=== PATIENT | female | born 1935 | race Two or more races ===

== ENCOUNTER → 2017-07-15 | Outpatient (CLI) | payer OTHER ==
[~2017-07-15] MED LIST: AMLODIPINE BESY10 M1 PO; ATENOLOL25 MG PO; COZAAR100 MG PO; HYDROCHLOROTH12.5 M2 PO; KLOR-CON M1010 MEQ PO; METFORMIN ER500 M1 PO; TRAVATAN Z5 ML OU
== END | disposition home or self-care (01) ==
LOC: RD 11:21
DX: R22.9 Localized swelling, mass and lump, unspecified (principal)

== ENCOUNTER 2018-03-23 14:23 | Emergency (ER) | payer OTHER ==
[~2018-03-23] VITALS: Ht 157.5 cm; Wt 55.8 kg
[2018-03-23 14:41] VITALS: Ht 157.5 cm; Wt 55.8 kg
[2018-03-23 19:35] VITALS: BP 192/73
== END 2018-03-23 19:35 | disposition home or self-care (01) ==
LOC: ED 14:23
DX: S39.012A Strain of muscle, fascia and tendon of lower back, initial encounter (principal); S29.012A Strain of muscle and tendon of back wall of thorax, initial encounter; S30.0XXA Contusion of lower back and pelvis, initial encounter; I10 Essential (primary) hypertension; E11.9 Type 2 diabetes mellitus without complications; Z90.710 Acquired absence of both cervix and uterus; Z98.890 Other specified postprocedural states; Z85.068 Personal history of other malignant neoplasm of small intestine; W01.0XXA Fall on same level from slipping, tripping and stumbling without subsequent striking against object, initial encounter; Y93.89 Activity, other specified; Y92.89 Other specified places as the place of occurrence of the external cause; Y99.8 Other external cause status
CPT/HCPCS: J3010; Q0162

== ENCOUNTER 2018-09-25 11:52 | Inpatient (IN) | payer OTHER ==
[~2018-09-25] VITALS: Ht 157.5 cm; Wt 60.5 kg
[2018-09-25 11:58] VITALS: Ht 157.5 cm; Wt 60.5 kg
[2018-09-25 12:48] LABS: ALKALINE PHOSPHATASE 47 U/L (46-116); ALT/SGPT 21 U/L (14-59); AST/SGOT 13 U/L (15-37); BILIRUBIN TOTAL 0.34 mg/dL (0.20-1.00); CALCIUM 9.7 mg/dL (8.5-10.1); CARBON DIOXIDE 24.2 mmol/L (21-32); CHLORIDE SERUM 101 mmol/L (98-107); CREATININE SERUM 1.8 mg/dL (0.6-1.0); GLUCOSE SERUM 211 mg/dL (74-106); LIPASE 347 IU/L (73-393); SODIUM SERUM 139 mmol/L (136-145); TOTAL PROTEIN, SERUM 7.3 g/dL (6.4-8.2)
[2018-09-25 12:50] LABS: BASOPHIL % 0.4 % (0-2); PLATELET COUNT 310 x10^3mcL (130-400); RED CELL DISTRIBUTION WIDTH 13.9 % (11.5-14.5)
[2018-09-25 12:54] LABS: ALBUMIN 3.2 g/dL (3.4-5.0); POTASSIUM SERUM 2.7 mmol/L (3.5-5.1)
[2018-09-25 13:28] LABS: microscopic required? YES
[2018-09-25 13:29] LABS: urine erythrocyte NEGATIVE (NEGATIVE)
[2018-09-25] MEDS ORDERED: NIFEDIPINE ER60 M1 PO (15:02)
[2018-09-25] MEDS ORDERED: POTASSIUM CHLO10 MEQ PO (15:02)
[2018-09-25] MEDS ORDERED: NOR10 PO (15:02)
[2018-09-25] MEDS ORDERED: HYDROCHLOROTHIA25 MG PO (15:05)
[2018-09-25] MEDS ORDERED: TYLENOL ARTHRI650 MG PO (15:07)
[2018-09-25 15:41] LABS: MAGNESIUM 1.9 mg/dL (1.8-2.4); PHOSPHOROUS 4.1 mg/dL (2.5-4.9)
[2018-09-25 15:48] LABS: CHOLESTEROL/HDL RATIO 6.5
[2018-09-25 15:50] LABS: FREE T4 0.88 ng/dL (0.76-1.46); FREE THYROXINE INDEX 2.4 ug/dL (1.4-4.5); T3 TOTAL 1.24 ng/mL; T4(THYROXINE) 7.2 ug/dL (4.7-13.3)
[2018-09-25 17:30] VITALS: BP 157/66
[2018-09-25 17:47] VITALS: BP 157/66
[2018-09-25 21:04] VITALS: BP 122/74
[2018-09-26 05:28] VITALS: BP 172/69
[2018-09-26 06:14] LABS: BASOPHIL % 0.2 % (0-2); PLATELET COUNT 272 x10^3mcL (130-400); RED CELL DISTRIBUTION WIDTH 14.4 % (11.5-14.5)
[2018-09-26 06:43] LABS: CALCIUM 8.7 mg/dL (8.5-10.1); CARBON DIOXIDE 24.5 mmol/L (21-32); CHLORIDE SERUM 111 mmol/L (98-107); CREATININE SERUM 1.3 mg/dL (0.6-1.0); GLUCOSE SERUM 94 mg/dL (74-106); MAGNESIUM 2.1 mg/dL (1.8-2.4); PHOSPHOROUS 3.2 mg/dL (2.5-4.9); POTASSIUM SERUM 3.7 mmol/L (3.5-5.1); SODIUM SERUM 146 mmol/L (136-145)
[2018-09-26 07:58] VITALS: BP 180/72
[2018-09-26 16:36] VITALS: BP 186/69
[2018-09-26 20:36] VITALS: BP 165/72
[2018-09-27 06:00] VITALS: BP 141/72; BP 193/73
[2018-09-27 10:00] VITALS: BP 215/74
[2018-09-27 17:20] VITALS: BP 193/76
[2018-09-27 21:59] VITALS: BP 128/74
[2018-09-28 05:16] VITALS: BP 127/76
[2018-09-28 06:14] LABS: CALCIUM 8.4 mg/dL (8.5-10.1); CARBON DIOXIDE 25.1 mmol/L (21-32); CHLORIDE SERUM 109 mmol/L (98-107); CREATININE SERUM 1.3 mg/dL (0.6-1.0); GLUCOSE SERUM 91 mg/dL (74-106); POTASSIUM SERUM 3.5 mmol/L (3.5-5.1); SODIUM SERUM 142 mmol/L (136-145)
[2018-09-28 08:08] LABS: PLATELET COUNT 245 x10^3mcL (130-400); RED CELL DISTRIBUTION WIDTH 14.2 % (11.5-14.5)
[2018-09-28 10:04] VITALS: BP 116/71
[2018-09-28 13:05] LABS: ATYPICAL LYMPH 0 %; BAND NEUTROPHIL 0 % (0-10); BASOPHIL 2 % (0-2); MONOCYTE 12 % (0-7); SEGMENTED NEUTROPHILS 58 % (37-75)
[2018-09-28 13:06] LABS: PLATELET MORPHOLOGY PLATELETS DECREASED; rbc morphology (normal/abnorm) NORMAL (NORMAL)
[2018-09-28] MEDS ORDERED: NOR10 PO (14:48)
[2018-09-28] MEDS ORDERED: NIFEDIPINE60 MG PO (14:48)
[2018-09-28] MEDS ORDERED: DIOVAN320 MG PO (14:50)
[2018-09-28] MEDS ORDERED: HYDROCHLOROTHIA25 MG PO (14:53)
== END 2018-09-28 14:57 | disposition home health service (06) | DRG 640 ==
LOC: ED 11:52 → MU 14:30
PROVIDERS: Emergency Medicine; ADMIT Family Medicine
DX: E87.6 Hypokalemia (principal); N17.0 Acute kidney failure with tubular necrosis; N39.0 Urinary tract infection, site not specified; G90.8 Other disorders of autonomic nervous system; E86.0 Dehydration; E04.1 Nontoxic single thyroid nodule; I10 Essential (primary) hypertension; E11.9 Type 2 diabetes mellitus without complications; H54.61 Unqualified visual loss, right eye, normal vision left eye; Z68.21 Body mass index [BMI] 21.0-21.9, adult; Z79.84 Long term (current) use of oral hypoglycemic drugs; Z85.060 Personal history of malignant carcinoid tumor of small intestine
CPT/HCPCS: 83880; 84439; 97110-GP; 97116-GP; 97530-GP; J0696; J3480; J7030; Q0092

== ENCOUNTER → 2018-10-01 | Outpatient (CLI) | payer OTHER ==
[~2018-10-01] MED LIST changes: +DIOVAN320 MG PO; +HYDROCHLOROTHIA25 MG PO; +NIFEDIPINE ER60 M1 PO; +NIFEDIPINE60 MG PO; +NOR10 PO; +POTASSIUM CHLO10 MEQ PO; +TYLENOL ARTHRI650 MG PO
== END | disposition home or self-care (01) ==
LOC: NM 08:02
DX: I25.10 Atherosclerotic heart disease of native coronary artery without angina pectoris (principal)
CPT/HCPCS: A9500; J2785

== ENCOUNTER 2019-03-29 12:19 | Inpatient (IN) | payer OTHER ==
[~2019-03-29] VITALS: Ht 157.5 cm; Wt 59.4 kg
[2019-03-29 14:22] LABS: BASOPHIL % 0.2 % (0-2); PLATELET COUNT 279 x10^3mcL (130-400); RED CELL DISTRIBUTION WIDTH 13.4 % (11.5-14.5)
[2019-03-29 14:25] LABS: UA SPECIFIC GRAVITY 1.015 (1.005-1.035); microscopic required? YES; urine erythrocyte NEGATIVE (NEGATIVE)
[2019-03-29 14:44] LABS: CALCIUM 8.5 mg/dL (8.5-10.1); CARBON DIOXIDE 23.4 mmol/L (21-32); CHLORIDE SERUM 104 mmol/L (98-107); CREATININE SERUM 2.3 mg/dL (0.6-1.0); GLUCOSE SERUM 124 mg/dL (74-106); POTASSIUM SERUM 3.4 mmol/L (3.5-5.1); SODIUM SERUM 139 mmol/L (136-145)
[2019-03-29 14:57] LABS: ALKALINE PHOSPHATASE 54 U/L (46-116); ALT/SGPT 12 U/L (14-59); AST/SGOT 10 U/L (15-37); BILIRUBIN TOTAL 0.3 mg/dL (0.20-1.00); FREE T4 0.86 ng/dL (0.76-1.46); TOTAL PROTEIN, SERUM 6.8 g/dL (6.4-8.2)
[2019-03-29 14:58] LABS: ALBUMIN 2.7 g/dL (3.4-5.0)
[2019-03-29] MEDS ORDERED: HYDRALAZINE HCL25 MG PO ×2 (16:44→21:47)
[2019-03-29] MEDS ORDERED: CATAPRES0.1 MG PO (16:46)
[2019-03-29] MEDS ORDERED: LATANOPROST2.5 ML (16:48)
[2019-03-29] MEDS ORDERED: ALPHAGAN P5 M1 (16:49)
[2019-03-29 17:16] VITALS: BP 177/71
[2019-03-29 17:22] VITALS: Ht 157.5 cm; Wt 59.4 kg
[2019-03-29 17:56] LABS: CHOLESTEROL/HDL RATIO 8.2
[2019-03-29 18:02] LABS: T3 TOTAL 1.13 ng/mL
[2019-03-29 18:04] LABS: FREE T4 0.91 ng/dL (0.76-1.46); FREE THYROXINE INDEX 2.7 ug/dL (1.4-4.5); T4(THYROXINE) 7.6 ug/dL (4.7-13.3)
[2019-03-29 19:07] VITALS: BP 188/70
[2019-03-29 20:30] VITALS: BP 171/57
[2019-03-29] MEDS ORDERED: NIFEDIPINE60 MG PO (21:47)
[2019-03-29 23:06] VITALS: BP 159/64
[2019-03-30] VITALS (9 sets, daily range): BP systolic 123–193; BP diastolic 47–67
[2019-03-30 02:13] LABS: UA SPECIFIC GRAVITY 1.015 (1.005-1.035); microscopic required? YES; urine erythrocyte NEGATIVE (NEGATIVE)
[2019-03-30 02:21] LABS: AMPHETAMINE QUAL UR NONE DETECTED (See below)
[2019-03-30 07:07] LABS: BASOPHIL % 0.4 % (0-2); RED CELL DISTRIBUTION WIDTH 13.4 % (11.5-14.5)
[2019-03-30 07:09] LABS: CALCIUM 8.4 mg/dL (8.5-10.1); CARBON DIOXIDE 22.9 mmol/L (21-32); CHLORIDE SERUM 109 mmol/L (98-107); CREATININE SERUM 2.2 mg/dL (0.6-1.0); GLUCOSE SERUM 112 mg/dL (74-106); POTASSIUM SERUM 3.9 mmol/L (3.5-5.1); SODIUM SERUM 142 mmol/L (136-145)
[2019-03-30 08:04] LABS: PLATELET COUNT 228 x10^3mcL (130-400)
[2019-03-30 09:13] LABS: rbc morphology (normal/abnorm) ABNORMAL (NORMAL)
[2019-03-30 17:22] LABS: RED BLOOD CELLS 2.23 M/mm3 (4.10-5.10)
[2019-03-30 17:28] LABS: IRON 36 ug/dL (50-170)
[2019-03-30 17:30] LABS: TOTAL IRON BINDING CAPACITY 177 ug/dL (250-450)
[2019-03-31 05:10] VITALS: BP 174/63
[2019-03-31 06:40] LABS: BASOPHIL % 0.1 % (0-2); PLATELET COUNT 261 x10^3mcL (130-400); RED CELL DISTRIBUTION WIDTH 14.2 % (11.5-14.5)
[2019-03-31 07:02] LABS: CALCIUM 8.2 mg/dL (8.5-10.1); CHLORIDE SERUM 107 mmol/L (98-107); CREATININE SERUM 2.3 mg/dL (0.6-1.0); GLUCOSE SERUM 93 mg/dL (74-106); POTASSIUM SERUM 3.6 mmol/L (3.5-5.1); SODIUM SERUM 142 mmol/L (136-145)
[2019-03-31 09:44] VITALS: BP 186/70
[2019-03-31 12:38] VITALS: BP 188/73
[2019-03-31 14:32] VITALS: BP 185/65
[2019-03-31 17:07] VITALS: BP 187/71
[2019-03-31 18:18] LABS: RED BLOOD CELLS 3.11 M/mm3 (4.10-5.10)
[2019-03-31 18:26] LABS: BILIRUBIN DIRECT 0.05 mg/dL (0.0-0.2); BILIRUBIN TOTAL 0.2 mg/dL (0.20-1.00)
[2019-03-31 21:27] VITALS: BP 131/65
[2019-04-01 04:49] VITALS: BP 164/66
[2019-04-01 07:03] LABS: BASOPHIL % 0.2 % (0-2); PLATELET COUNT 225 x10^3mcL (130-400)
[2019-04-01 07:10] LABS: CALCIUM 8.4 mg/dL (8.5-10.1); CARBON DIOXIDE 23.6 mmol/L (21-32); CHLORIDE SERUM 108 mmol/L (98-107); CREATININE SERUM 2.6 mg/dL (0.6-1.0); GLUCOSE SERUM 120 mg/dL (74-106); POTASSIUM SERUM 4.1 mmol/L (3.5-5.1); SODIUM SERUM 143 mmol/L (136-145)
[2019-04-01 07:57] LABS: RED CELL DISTRIBUTION WIDTH 14.6 % (11.5-14.5)
[2019-04-01 08:57] VITALS: BP 105/66
[2019-04-01 12:22] VITALS: BP 177/64
[2019-04-01 13:46] VITALS: BP 102/60
[2019-04-01 14:44] VITALS: BP 102/60
[2019-04-02 08:06] LABS: COMPLEMENT C3 114 mg/dL (82-167); COMPLEMENT C4 30 mg/dL (14-44)
== END 2019-04-01 15:47 | disposition home health service (06) | DRG 683 ==
LOC: ED 12:19 → MU 16:29 → DU 16:29 → MU 17:11 → DU 18:00
PROVIDERS: Internal Medicine; Internal Medicine Gastroenterology; Internal Medicine Nephrology; Student in an Organized Health Care Education/Training Program; ADMIT Internal Medicine
DX: I12.9 Hypertensive chronic kidney disease with stage 1 through stage 4 chronic kidney disease, or unspecified chronic kidney disease (principal); N17.9 Acute kidney failure, unspecified; E86.0 Dehydration; E11.22 Type 2 diabetes mellitus with diabetic chronic kidney disease; E11.65 Type 2 diabetes mellitus with hyperglycemia; N18.9 Chronic kidney disease, unspecified; H40.9 Unspecified glaucoma; E87.6 Hypokalemia; Z68.24 Body mass index [BMI] 24.0-24.9, adult; Z79.84 Long term (current) use of oral hypoglycemic drugs; Z85.068 Personal history of other malignant neoplasm of small intestine
CPT/HCPCS: 83880; 84439; 97110-GP; 97116-GP; 97530-GP; G0378; J0360; J1940; J7030; J7040; P9016; Q0092; Q0163

== ENCOUNTER 2019-05-11 07:54 | Inpatient (IN) | payer OTHER ==
[~2019-05-11] VITALS: Ht 162.6 cm; Wt 81.4 kg
[~2019-05-11 07:54] MED LIST changes: +ALPHAGAN P5 M1; +CATAPRES0.1 MG PO; +HYDRALAZINE HCL25 MG PO; +LATANOPROST2.5 ML
[2019-05-11 08:03] VITALS: Ht 162.6 cm; Wt 81.4 kg
--- NOTE | 2019-05-11 08:09 | NUR ---
LAB AT BEDSIDE. EKG IN PROG
--- NOTE | 2019-05-11 08:10 | NUR ---
PT LIT FROM HOME FOR SUDDEN ONSET DIZZINESS UPON WAKING UP THIS MORNING. PER MEDIC AND PT, SHE LIVES WITH [facility]. PT C/O SPINNING SENSATION WHEN LOOKING LEFT TO RIGHT IN VISUAL FIELD. NSR IN FIELD; BS WAS 158.
[2019-05-11] MEDS ORDERED: HYDRALAZINE HY100 MG PO (08:14)
[2019-05-11 08:19] LABS: BASOPHIL % 0.4 % (0-2); PLATELET COUNT 273 x10^3mcL (130-400)
--- NOTE | 2019-05-11 08:42 | NUR ---
RETURNED FROM CT SCAN. PLACED ON FULL MONITORS. NSR ON CM.
[2019-05-11 08:43] LABS: CARBON DIOXIDE 23.7 mmol/L (21-32); CHLORIDE SERUM 103 mmol/L (98-107); CREATININE SERUM 3.3 mg/dL (0.6-1.0); GLUCOSE SERUM 107 mg/dL (74-106); POTASSIUM SERUM 3.1 mmol/L (3.5-5.1); SODIUM SERUM 139 mmol/L (136-145)
--- NOTE | 2019-05-11 08:44 | NUR ---
DR ROLDAN AWARE OF LOWER BP. HOLD PO MEDS THAT ARE ORDERED IN EMAR PER
[2019-05-11 08:48] LABS: ALT/SGPT 15 U/L (14-59); AST/SGOT 13 U/L (15-37); BILIRUBIN TOTAL 0.4 mg/dL (0.20-1.00); LIPASE 277 IU/L (73-393); TOTAL PROTEIN, SERUM 6.6 g/dL (6.4-8.2)
[2019-05-11 08:53] LABS: ALBUMIN 2.8 g/dL (3.4-5.0); RED CELL DISTRIBUTION WIDTH 14.8 % (11.5-14.5)
[2019-05-11 09:35] LABS: ALKALINE PHOSPHATASE 46 U/L (46-116)
--- NOTE | 2019-05-11 09:48 | NUR ---
PT MEDICATED WITH POTASSIUM PO PER ORDERS FOR POTASSIUM 3.1, PT EDUCATED ON MEDICATION PRIOR TO ADMINISTRATION.
--- NOTE | 2019-05-11 10:18 | NUR ---
ATTEMPTED TO AMBULATE PT.VERY UNSTEADY. INFORMED SALLY ROLDAN OF SAME
[2019-05-11 10:55] LABS: microscopic required? YES; urine erythrocyte NEGATIVE (NEGATIVE)
--- NOTE | 2019-05-11 11:00 | NUR ---
PT IN RM TALKING TO SON AT BEDSIDE.
--- NOTE | 2019-05-11 11:11 | NUR ---
RESIDENT AT BEDSIDE TO SPEAK WITH PT AND PT'S SON
--- NOTE | 2019-05-11 12:10 | NUR ---
RECEIVED PT FROM ED BY SUKHDEEP. PT AWAKE, ALERT. A/OX4. PT ON ROOM AIR WITH NO RESP DISTRESS NOTED. IV ACCESS LAC, CDI SALINE LOCKED. PERIPHERAL PULSES PALPABLE, NO EDEMA NOTED. PT NOTED TO HAVE BRUISE TO RIGHT FOREARM. ACTIVE BS NOTED. PT DENIES ISSUES WITH ELIMINATION. PT REPORTS PAIN TO EARS/ PRESSURE/THROBBING. BP NOTED TO BE 198/83. WILL INFORM CHRISTI. PT ORIENTED TO ROOM. SAFETY MEASURES IN PLACE, BED LOW AND LOCKED. CALL LIGHT WITHIN REACH.
[2019-05-11 12:13] VITALS: BP 198/83
--- NOTE | 2019-05-11 12:13 | NUR ---
PT BLOOD PRESSURE UPON ADMISSION 198/83. CHRISTI Fulton NP AWARE
--- NOTE | 2019-05-11 12:42 | NUR ---
PT BLOOD PRESSURE 198/83 (121) HR 93. HYDDRALAZINE ADMININSTERED ORDERED PRN (SEE EMAR). PT COMPLETING CAROTID US AT THIS TIME. PT RESTING WITH NO ACUTE DISTRESS NOTED AT THIS TIME. WILL MONITOR.
[2019-05-11 13:29] LABS: CHOLESTEROL/HDL RATIO 4.2
--- NOTE | 2019-05-11 14:46 | NUR ---
PT BLOOD PRESSURE 153/61 (70) HR 95 AT THIS TIME. PT RESTING COMFORTABLY, REPORTS POUNDING IN EARS HAS SUBSIDED.
[2019-05-11 14:47] VITALS: BP 153/61
[2019-05-11 14:53] VITALS: BP 198/83
[2019-05-11 16:47] VITALS: BP 171/53
--- NOTE | 2019-05-11 17:16 | NUR ---
PT BP 171/53. NEXT PRN/SCHEDULED MED DUE AT 2100. CHRISTI WATCH REPAIR TECHNICIAN AWARE. WILL MONITOR PT. NO ACUTE DISTRESS NOTED AT THIS TIME. PT SLEEPING.
--- NOTE | 2019-05-11 18:43 | NUR ---
PT STABLE AT THIS TIME. ALL NEEDS TENDED TO THROUGOUT SHIFT. WILL CONTINUE TO MONITOR AND ENDORSE CARE TO MANAGER PROCESS IMPROVEMENT.
--- NOTE | 2019-05-11 19:40 | NUR ---
TELE NEURO CONSULT INITIATED PER MD ORDER.
--- NOTE | 2019-05-11 20:03 | NUR ---
RECIEVED PT FROM PREVIOUS NURSE. PT AOX4, RESTING IN BED. PT COMPLAINS OF SWENSON , MEDICATED PER MAR. PT DENIES SOB/DIFFICULTY BREATHING NO ACUTE SIGNS OF DISTRESS. BED AT THE LOWEST POSITION WITH CALL LIGHT WITHIN REACH. WILL CONTINUE TO MONITOR.
[2019-05-11 20:06] VITALS: BP 180/66
[2019-05-11 22:48] VITALS: BP 155/58
[2019-05-12] VITALS (8 sets, daily range): BP systolic 155–215; BP diastolic 51–88
--- NOTE | 2019-05-12 05:06 | NUR ---
PT RESTING IN BED. RESPIRATIONS EVEN AND UNLABORED. NO SIGNS OF ACUTE DISTRESS. BED IN LOWEST POSITION AND CALL LIGHT WITHIN REACH. WILL CONTINUE TO MONITOR.
[2019-05-12 06:20] LABS: CARBON DIOXIDE 24.9 mmol/L (21-32); CHLORIDE SERUM 105 mmol/L (98-107); CREATININE SERUM 3.5 mg/dL (0.6-1.0); GLUCOSE SERUM 96 mg/dL (74-106); POTASSIUM SERUM 3.9 mmol/L (3.5-5.1); SODIUM SERUM 138 mmol/L (136-145)
[2019-05-12 06:47] LABS: BASOPHIL % 0.3 % (0-2); PLATELET COUNT 211 x10^3mcL (130-400)
--- NOTE | 2019-05-12 07:00 | NUR ---
RECEIVED REPORT FROM NIGHT NURSE PATIENT LYING IN BED A&O X4 DENIES ANY NAUSEA OR DIZZINESS AT THIS TIME. ON TELE MONITOR 27 NSR DENIES ANY PAIN AT THIS TIME. IV ON LAC PATENT AND INTACT . PATIENT DENIES ANY PAIN LUNGS CTA BILAT. ALL QUESTIOND AND CONCERNS ADDRESSED AT THIS TIME. BED IN LOWEST POSITION CALL LIGHT WITHIN REACH. WILL CONTINUE TO MONITOR.
[2019-05-12 08:10] LABS: RED CELL DISTRIBUTION WIDTH 14.9 % (11.5-14.5)
--- NOTE | 2019-05-12 08:20 | NUR ---
BP 185/65 HYDRALIZINE EFFECTIVE PATIENT REMAINS ASYMPTOMATIC AT THIS TIME. ALL NEEDS ADDRESSED. WILL CONTINUE TO MONITOR. SAFETY PRECAUTIONS IN PLACE.
--- NOTE | 2019-05-12 08:30 | NUR ---
ADMINISTERED SCEDULED MED PER MAR PO PATIENT TOLERATED WELL NO ADVERSE REACTIONS NOTED. ALL NEEDS ATTENDED TO AT THIS TIME. BED IN LOWEST POSITION CALL LIGHT WITHIN REACH. WILL CONTINUE TO MONITOR.
--- NOTE | 2019-05-12 08:50 | NUR ---
PATIENT BP 215/77 ADMINISTERED HYDRALIZINE IVP PER JUL FOR BP OVER 180 PATIENT TOLERATED WELL. NO S/S OF ANY ACUTE DISTRESS PATIENT DENIES ANY CHEST PAIN OR PALPITATIONS AT THIS TIME. ALL NEEDS ATTENDED TO WILL REASSES BP IN 30 MIN. CALL LIGHT WITHIN REACH BED IN LOW POSITION.
--- NOTE | 2019-05-12 12:41 | NUR ---
PATIENT SITTING UP AT THIS SIDE OF BED EATING LUNCH TOLERATING DIET WELL. PATIENT DENIES ANY CHEST PAIN OR DIZZINESS AT THIS TIME. ALL NEEDS ATTENDED TO SON AT BEDSIDE. BED IN LOWEST POSITION CALL LIGHT WITHIN REACH. WILL CONTINUE TO MONITOR.
--- NOTE | 2019-05-12 13:17 | NUR ---
SPOKE TO JANENE GALVIN TBP MED OK TO RESTART CATAPRES0.1 MG TAB BID WILL PROCEED WITH ORDER. SON BROUGHT EYE DROPS FROM HOME OK WITH JANENE CAPELLAN TO ORDER DROPS WILL GIVE TO PHARMACY TO APPROVE.
--- NOTE | 2019-05-12 15:26 | NUR ---
PATIENT LYING IN BED DENIES ANY PAIN OR DIZZINESS AT THIS TIME. ALL NEEDS ATTENDED TO AT THIS TIME. SON AT BEDSIDE. BED IN LOWEST POSITION CALL LIGHT WITHIN REACH. WILL CONTINUE TO MONITOR.
--- NOTE | 2019-05-12 15:35 | NUR ---
PATIENT LYING IN BED CONTINUE TO HAVE HIGH BLOOD PRESSURE PRN MED NOT DUE TIL 1630 DOLLY PUSHER JANENE MADE AWARE WILL WAIT FOR DR ABREU. PATIENT REMAINS ASYMPTOMATIC ALL NEEDS ATTENDED TO AT THIS TIME. SON AT BEDSIDE SAFETY PRECAUTION IN PLACE. WILL CONTINUE TO MONITOR.
--- NOTE | 2019-05-12 17:15 | NUR ---
SPOKE TO KIRBY KRAUSE REGUARDING PATIENT UNCONTROLLED B PER JANENE GIVE ONE TIME DOES OF HYDRALIZINE 10MG IVP. READ BACK AND VERIFIED. ORDER CARRIED OUT. PATIENT ASYMPTOMATIC AND DENIES ANY DIZZINESS OR HEADACHE. ALL NEEDS ATTENDED TO AT THIS TIME. SAFETY PRECAUTIONS IN PLACE. WILL CONTINUE TO MONITOR.
--- NOTE | 2019-05-12 17:43 | NUR ---
SPOKE TO DR ERVIN ABOUT PATIENT UNCONTROLLED BP AFTER GIVING HYDRALIZINE DR ABREU STATED" I'LL TAKE A LOOK AT IT AND PUT IN ORDERS" NO NEW ORDER AT THIS TIME FOR MY SHIFT. WILL CONTINUE TO MONITOR PATIENT. PATIENT SITTING UP IN BED EATING DINNER DENIES ANY HEADACHE OR DIZZINESS AT THIS TIME. ALL NEEDS ATTENDED TO. BED IN LOWEST POSITION CALL LIGHT WITHIN REACH. WILL CONTINUE TO MONITOR.
--- NOTE | 2019-05-12 18:52 | NUR ---
PATIENT LYING IN BED DENIES ANY DIZZINESS , HEADACHE OR CHEST PAIN. NO S/S OF ANY RESPIRATORY DISTRESS AT THIS TIME. TELE MONITOR 27 ATTACHED. IV INFUSING ON LAC PATENT AND INTACT. ALL QUESTIONS AND CONCERNS ADDRESSED AT THIS TIME. BED IN LOWEST POSITION CALL LIGHT WITHIN REACH. WILL ENDORSE CARE TO NIGHT NURSE.
--- NOTE | 2019-05-12 19:10 | NUR ---
REPORT RECEIVED FROM DAY SHIFT RN. PATIENT WAS SEEN RESTING COMFORTABLY IN BED. NO DISTRESS NOTED. BREATHING EVEN AND UNLABORED ON ROOM AIR. NO SOB OR RESP DISTRESS NOTED. DENIES CHEST PAIN/PRESSURE. DENIES SWENSON OR DIZZINESS. IV TO THE LAC INFUSING WELL. PATENT AND INTACT. NO REDNESS OR SWELLING NOTED. COMFORT AND SAFETY MEASURES IN PLACE. BED IS LOCKED AND IN THE LOWEST POSITION. SIDE RAILS UP X2. CALL LIGHT IS WITHIN REACH. WILL CONTINUE TO MONITOR.
--- NOTE | 2019-05-12 20:25 | NUR ---
HIGH BP. 205/74 (117), HR 82. PATIENT DENIES SWENSON. NO DISTRESS NOTED. SCHEDULED LABETALOL 400MG GIVEN PER ORDER. WILL REASSESS BP. DENIES PAIN. BREATHING EVEN. SAFETY MEASURES IN PLACE. CALL LIGHT IS WITHIN REACH. WILL CONTINUE TO MONITOR
--- NOTE | 2019-05-12 21:20 | NUR ---
C/O BACK PAIN. ASSISTED PATIENT IN REPOSITIONING ONTO RIGHT SIDE. PATIENT REPORTS COMFORT. NO DISTRESS. CALL LIGHT WITHIN REACH. WILL CONTINUE TO MONITOR.
--- NOTE | 2019-05-12 21:47 | NUR ---
BP REASSES AFTER LABETALOL 400MG PO WAS GIVEN. NOW 186/68 (87), HR 74. WILL CONTINUE TO MONITOR BP
--- NOTE | 2019-05-12 22:55 | NUR ---
BP 175/68 (92), HR 75. RESTING IN BED COMFORTABLY. DENIES SWENSON AND DIZZINESS. NO C/O PAIN. SAFETY MEASURES IN PLACE. CALL LIGHT IS WITHIN REACH. WILL CONTINUE TO MONITOR.
--- NOTE | 2019-05-13 00:25 | NUR ---
ASSISTED PATIENT IN REPOSITIONING TO RIGHT SIDE. NO DISTRESS NOTED. BREATHING EVEN AND UNLABORED. NO C/O PAIN. IVF INFUSING WELL. SAFETY MEASURES IN PLACE. CALL LIGHT IS WITHIN REACH. WILL CONTINUE TO MONITOR.
--- NOTE | 2019-05-13 01:39 | NUR ---
RESTING IN BED WITH EYES CLOSED. NO DISTRESS NOTED. BREATHING EVEN AND UNLABORED ON ROOM AIR. NO S/S OF PAIN NOTED. IVF INFUSING WELL. SAFETY MEASURES IN PLACE. CALL LIGHT IS WITHIN REACH. WILL CONTINUE TO MONITOR.
--- NOTE | 2019-05-13 03:10 | NUR ---
RESTING IN BED W/ EYES CLOSED. NO APPARENT DISTRESS NOTED. BREATHING EVEN AND UNLABORED. NO SOB NOTED. NO S/S OF PAIN. IVF INFUSING WELL. SAFETY MEASURES IN PLACE. CALL LIGHT IS WITHIN REACH. WILL CONTINUE TO MONITOR.
[2019-05-13 05:45] VITALS: BP 126/46
--- NOTE | 2019-05-13 06:30 | NUR ---
RESTED IN LONG INTERVALS THROUGHOUT THE NIGHT. NO DISTRESS NOTED. BREATHING EVEN AND UNLABORED. NO SOB. NO C/O PAIN THROUGHOUT THE NIGHT. DENIES CHEST PAIN/PRESSURE. IV TO LAC. PATENT AND INTACT. ALL NEEDS AND CONCERNS ADDRESSED. SAFETY MEASURES IN PLACE. CALL LIGHT IS WITHIN REACH. WILL ENDORSE CARE TO DAY SHIFT RN.
[2019-05-13 06:44] LABS: BASOPHIL % 0.3 % (0-2); PLATELET COUNT 193 x10^3mcL (130-400)
[2019-05-13 06:53] LABS: CARBON DIOXIDE 23.9 mmol/L (21-32); CHLORIDE SERUM 105 mmol/L (98-107); CREATININE SERUM 3.2 mg/dL (0.6-1.0); GLUCOSE SERUM 158 mg/dL (74-106); POTASSIUM SERUM 4.2 mmol/L (3.5-5.1); SODIUM SERUM 138 mmol/L (136-145)
[2019-05-13 07:23] LABS: RED CELL DISTRIBUTION WIDTH 14.9 % (11.5-14.5)
--- NOTE | 2019-05-13 07:30 | NUR ---
RECEIVED REPORT FROM DEWATERING FILTERING SUPERVISOR NURSE PATIENT LYING IN BED WITH EYES CLOSED. A&O X4 NO S/S OF ANY ACUTE DISTRESS. IV ON LAC PATENT AND INTACT INFUSING. TELE MONITOR 27 INTACT. ALL NEEDS ADDRESSED AT THIS TIME. BED IN LOWEST POSITION CALL LIGHT WITHIN REACH. WILL CONTINUE TO MONITOR.
--- NOTE | 2019-05-13 08:43 | NUR ---
PATIENT LYING IN BED DENIES ANY DIZZINESS OR PAIN AT THIS TIME. CHRISTI PIZZA HUT TEAM MEMBER AT BEDSIDE UPDATING PATIENT ON CARE STATUS. ADMINISTERED SCHEDULED MEDS PER JUL PATIENT TOLERATED WELL NO ADVERSE REACTIONS NOTED. PATIENT C/O INDIGESTION ADMINISTERED PROTONIX IVP PER JUL. ALL NEEDS ATTENDED TO AT THIS TIME. BED IN LOWEST POSITION CALL LIGHT WITHIN REACH. WILL CONTINUE TO MONITOR.
[2019-05-13 09:27] VITALS: BP 134/38
--- NOTE | 2019-05-13 11:15 | NUR ---
PATIENT LYING IN BED DENIES ANY VIZZINESS OR HX AT THIS TIME. ALL QUESTIONS AND CONCERNS ADDRESSED AT THIS TIME. IV PATENT AND INFUSING. BED IN LOWEST POSITON CALL LIGHT WITHIN REACH. WILL CONTINUE TO MONITOR.
--- NOTE | 2019-05-13 13:38 | NUR ---
PATIENT UP WITH PHYSICAL THERAPY TO BATHROOM AND BACK REPORTED GENERALIZED WEAKNESS. DEMONSTRATED EXCERSIZES FOR HER TO DO WHILE IN BED. PATIENT DEMONSTRATED UNDERSTANDING. ALL NEEDS ATTENDED TO AT THIS TIME. SAFETY PRECAUTIONS IN PLACE. WILL CONTIUE TO MONITOR.
[2019-05-13 13:57] VITALS: BP 135/52
--- NOTE | 2019-05-13 15:08 | NUR ---
PHYSICAL THERAPY DAILY NOTES CO-SIGN All documentation done by the Sanitation Officer for 05/13/19 has been reviewed. I agree with the documentation. Reviewed/Co-Signed by: Yessica Weldon PT Documentation Done by:SLICK NORMAN PTA
--- NOTE | 2019-05-13 15:36 | NUR ---
SPOKE TO PATIENT DAUGHTER GABRIEL UPDATED HER ON CARE STATUS. PATIENT UPDATED WELL. PATIENT LYING IN BED DENIES ANY DIZZINESS OR N/V AT THIS TIME. ALL NEEDS ATTENDED TO BED IN LOW POSITION CALL LIGHT WITHIN REACH. WILL CONTINUE TO MONITOR.
[2019-05-13 17:50] VITALS: BP 133/55
--- NOTE | 2019-05-13 18:49 | NUR ---
PATIENT LYING IN BED A&O X4 DENIES ANY DIZZINESS OR N/V. IV ON LAC PATENT AND INTACT INFUSING. HEART MONITOR INTACT #27 SHOWING NSR PATIENT DENIES ANY CHEST PAIN. ALL QUESTIONS AND CONCERNS ADDRESSED AT THIS TIME. BED IN LOWEST POSITION CALL LIGHT WITHIN REACH. WILL ENDORSE CARE TO NIGHT NURSE.
--- NOTE | 2019-05-13 19:05 | NUR ---
REPORT RECEIVED FROM DAY SHIFT RN. PATIENT WAS SEEN RESTING COMFORTABLY IN BED. NO DISTRESS NOTED. BREATHING EVEN AND UNLABORED ON ROOM AIR. NO SOB OR RESP DISTRESS NOTED. DENIES CHEST PAIN/PRESSURE. TELE# 27- NSR AT 83. IV TO THE LAC, INFUSING WELL. PATENT AND INTACT. NO REDNESS OR SWELLING NOTED. COMFORT AND SAFETY MEAURES IN PLACE. BED IS LOCKED AND IN THE LOWEST POSITION. SIDE RAILS UP X2. CALL LIGHT IS WITHIN REACH. WILL CONTINUE TO MONITOR.
[2019-05-13 20:33] VITALS: BP 150/58
--- NOTE | 2019-05-14 00:28 | NUR ---
PATIENT REPORTS SHE HAS TO VOID. ASSISTED PATIENT TO THE BATHROOM AND BACK TO BED. NO DISTRESS NOTED. DENIES DIZZINESS. NO C/O PAIN. IVF INFUSING WELL. BREATHINGE EVEN AND UNLABORED ON ROOM AIR. SAFETY MEASURES IN PLACE. CALL LIGHT IS WITHIN REACH. WILL CONTINUE TO MONITOR.
--- NOTE | 2019-05-14 03:08 | NUR ---
PATIENT CALLED STATING SHE CAN'T SLEEP. NO DISTRESS NOTED. DENIES DIZZINESS. STATES SHE WILL KEEP TRYING TO SLEEP. BREATHING EVEN AND UNLABORED. SAFETY MEASURES IN PLACE. WILL CONTINUE TO MONITOR.
[2019-05-14 05:09] VITALS: BP 160/61
--- NOTE | 2019-05-14 06:11 | NUR ---
PRN HYDRALAZINE IVP WAS GIVEN FOR HIGH BP 164/63 (80), HR 73. WILL CONTINUE TO MONITOR BP. NO DISTRESS NOTED. BREATHING EVEN.
[2019-05-14 06:14] LABS: BASOPHIL % 0.1 % (0-2); PLATELET COUNT 195 x10^3mcL (130-400)
[2019-05-14 06:42] VITALS: BP 159/66
--- NOTE | 2019-05-14 06:42 | NUR ---
BP AFTER PRN HYDRALAZINE IVP 159/66 (80), HR 74.
--- NOTE | 2019-05-14 06:44 | NUR ---
RESTING IN LONG INTERVALS THROUGHOUT THE NIGHT. NO ACUTE CHANGES NOTED. NO DISTRESS NOTED. BREATHING EVEN AND UNLABORED ON ROOM AIR. NO SOB NOTED. NO C/O PAIN THROUGHOUT THE NIGHT. DENIES PAIN. IV TO THE LAC INFUSING WELL. PATENT AND INTACT. ALL NEEDS AND CONCERNS ADDRESSED. SAFETY MEASURES IN PLACE. CALL LIGHT IS WITHIN REACH. WILL ENDORSE CARE TO DAY SHIFT RN
[2019-05-14 06:54] LABS: CALCIUM 7.8 mg/dL (8.5-10.1); CARBON DIOXIDE 22.4 mmol/L (21-32); CHLORIDE SERUM 107 mmol/L (98-107); CREATININE SERUM 3.4 mg/dL (0.6-1.0); GLUCOSE SERUM 121 mg/dL (74-106); MAGNESIUM 1.9 mg/dL (1.8-2.4); SODIUM SERUM 138 mmol/L (136-145)
[2019-05-14 07:08] LABS: RED CELL DISTRIBUTION WIDTH 14.9 % (11.5-14.5)
--- NOTE | 2019-05-14 08:00 | NUR ---
RECEIVED PATIENT WHO IS A FRIENDLY PATIENT HOW LIKES TO TALK. SHE HAS NO COPLAINTS OF PAIN AND NO HEADACHE OR ACUTE DIZZINESS NOTED. APTEINT AHS VITALS AT IS RASHAD AT 170/66, 18, 95% AND WAS GIVEN HER BP MEDICATIONS OREERED. THE IV IS NOT FLUSHING AND NEEDED TO RESTART AND PLACED A 22 GAUGE IN THE LEFT WRIST. PATIENT OOB AND TOLERATED WELL AND NO SIGNS OF STUMPLING OR UNSTEADINESS. PAITEN TAHS CLEA4 BREATH SOUND SAND PATIENT AHS PULSES PALPABLE TO THE EXTREMTIES. 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 SHE HAS NOETD LABS OF HT H AHD OF 7.1/21 AND BUN AT 51.2 AND CREATININE AT 3.4. PATIENT HAS AN ORDER FOR IRON BUT WILL NEED TO CALL THE PORTABLE TRACK LINE MARKER AND USE THE FERRROUS INFUSION PER THE RECOMENTATION OF THE PHARMACY. WILL CONINUE TO [facility] INDICATED.
[2019-05-14 08:22] VITALS: BP 170/66
[2019-05-14] MEDS ORDERED: ADA90 PO (10:41)
[2019-05-14] MEDS ORDERED: LIPITOR80 MG PO (10:41)
[2019-05-14] MEDS ORDERED: BAY PO (10:42)
[2019-05-14] MEDS ORDERED: TRA100 PO (10:42)
--- NOTE | 2019-05-14 11:03 | NUR ---
RESTARTED THE IV INDICATED THE IV SITE WOULD NOT FLUSH. STARTED ON NOROMAL SALINE ORDERED AND CONSTANTINO HAS BEEN UP OOB AND TOELRAED WELL WITH PT AND WITH STAFF. SHE HAS ELEVATED BP AND GAVE ATIVERT AND HER BP WAS ELEVATED. AND THE BP THIS AM AT 170/66, 18, 95%. PATIENT DENIES HEADACHE OR PAIN AT THIS TIME. BELIEVES SHE IS GOING HOME TODAY. SO FAR NO ORDERES NOTED.
--- NOTE | 2019-05-14 11:21 | NUR ---
CALLED THE DIVISION ORDER ANALYST FOR ORDER TO BE CHANGED PER PHARMACY TO THE OTHER FORM OF IRON REPLACEMENT. DIVISION ORDER ANALYST WAS OK FOR THE CHANGE AND CALLED THE PHARMACY TO PROCESS THIS ORDER. PATIENT IS WITH H AHD H OF 7.06/08.
[2019-05-14 12:10] VITALS: BP 167/68
[2019-05-14] MEDS ORDERED: HYDRALAZINE HCL25 MG PO (12:23)
[2019-05-14 13:27] LABS: BASOPHIL % 0.3 % (0-2); PLATELET COUNT 191 x10^3mcL (130-400)
[2019-05-14 13:29] LABS: RED CELL DISTRIBUTION WIDTH 14.8 % (11.5-14.5)
--- NOTE | 2019-05-14 14:40 | NUR ---
HUNG THE IRON INFUSION AND THE PROCRIT GIVEN. LATEST LABS OF H AND H SHOWN TO THE EQUIPMENT COORDINATOR AND SHE IS AWARE AND PATIENT IS CHRONIC ANEMIA. FOR DISCHARGE HOME AND FAMILY TO TEAM LEADER/RESEARCH PSYCHOLOGIST AND WILL GO OVER THE DISCHARGE PAPERWORK WITH THEM. STAFFF IS AWARE OF VISION AND HEARING ISSUES WITH THE PATIENT. SHE SEEMS ANXIOUS TO GO HOME.
--- NOTE | 2019-05-14 14:58 | NUR ---
PHYSICAL THERAPY DAILY NOTES CO-SIGN All documentation done by the Bandoleer Straightener Stamper for 05/14/19 has been reviewed. I agree with the documentation. Reviewed/Co-Signed by: Yessica Weldon PT Documentation Done by:SLICK NORMAN PTA
--- NOTE | 2019-05-14 16:43 | NUR ---
PATIENT DISCHARGE PAPERWORK GIVEN AND PATIENT TO FOLLOW UP WITH THE PRIMARY INDICATED, SHE HAS A DOSE CHANGE TO HER NORVASC AND TO CALL PHARMACY FOR PRESCIPTION. NO COMPLAINTS OF PAIN AND REMOVED IV AND TELE PRIOR TO DISCHARGE AND DISCHARGED WITH ALL BELONGINS TO [facility].
--- NOTE | 2019-05-14 16:45 | NUR ---
ADVISED THE MACHINE DESIGNER OF THE HEMAGLOBIN AND HEMATOCRIT. PER MACHINE DESIGNER THE DU BERNARDHS CHRONIC ANEMIA AND SHE TREATEDM AT THE HOSPITAL WITH THE IRON INFUSION AND EPOGEN.
--- NOTE | 2019-05-15 08:01 | NUR ---
ECHOCARDIOGRAM NOT DONE-DISCHARGED
== END 2019-05-14 16:54 | disposition home health service (06) | DRG 149 ==
LOC: ED 07:54 → DU 10:38
PROVIDERS: Emergency Medicine; ADMIT General Practice
DX: R42 Dizziness and giddiness (principal); N17.0 Acute kidney failure with tubular necrosis; N18.4 Chronic kidney disease, stage 4 (severe); I12.9 Hypertensive chronic kidney disease with stage 1 through stage 4 chronic kidney disease, or unspecified chronic kidney disease; E11.22 Type 2 diabetes mellitus with diabetic chronic kidney disease; H53.2 Diplopia; I16.0 Hypertensive urgency; D63.1 Anemia in chronic kidney disease; I25.10 Atherosclerotic heart disease of native coronary artery without angina pectoris; H40.9 Unspecified glaucoma; Z68.29 Body mass index [BMI] 29.0-29.9, adult; Z87.81 Personal history of (healed) traumatic fracture; Z79.84 Long term (current) use of oral hypoglycemic drugs; Z85.068 Personal history of other malignant neoplasm of small intestine
CPT/HCPCS: 97112-GP; 97116-GP; 97530-GP; C9113; G0378; J0360; J2765; J2916; J7030; J7042; J8597; Q0092

== ENCOUNTER 2019-05-23 20:25 | Inpatient (IN) | payer OTHER ==
[~2019-05-23] VITALS: Ht 165.1 cm; Wt 59.8 kg
[~2019-05-23 20:25] MED LIST changes: +ADA90 PO; +BAY PO; +HYDRALAZINE HY100 MG PO; +LIPITOR80 MG PO; +TRA100 PO
--- NOTE | 2019-05-23 20:45 | NUR ---
REC'D A 83/F IN RM ORTHO WITH C/O HBP X 1 DAY. +COMPLIANT WITH HTN MEDS. PER PT, SHE WAS RECENTLY DISCHARGED 05/14/19 AND PRESCRIBED LABETALOL. SHE REPORTS SHE HAS BEEN DROWSY AND SOB X 1 WEEK. PT AAOX4, CLEAR SPEECH, RESP EU, IN NO ACUTE DISTRESS. BP: 209/77; O2 SAT: 96%RA.
--- NOTE | 2019-05-23 20:54 | NUR ---
EKG IN PROGRESS BY EMT
[2019-05-23 21:37] LABS: BASOPHIL % 0.3 % (0-2); PLATELET COUNT 225 x10^3mcL (130-400)
[2019-05-23 21:38] LABS: RED CELL DISTRIBUTION WIDTH 15.2 % (11.5-14.5)
[2019-05-23 21:57] LABS: CALCIUM 7.9 mg/dL (8.5-10.1); CARBON DIOXIDE 19.2 mmol/L (21-32); CHLORIDE SERUM 107 mmol/L (98-107); CREATININE SERUM 3.5 mg/dL (0.6-1.0); GLUCOSE SERUM 109 mg/dL (74-106); POTASSIUM SERUM 3.3 mmol/L (3.5-5.1); SODIUM SERUM 140 mmol/L (136-145)
[2019-05-23 22:01] LABS: ALKALINE PHOSPHATASE 47 U/L (46-116); ALT/SGPT 12 U/L (14-59); AST/SGOT 13 U/L (15-37); BILIRUBIN TOTAL 0.36 mg/dL (0.20-1.00); LIPASE 211 IU/L (73-393)
[2019-05-23 22:07] LABS: ALBUMIN 2.4 g/dL (3.4-5.0); TOTAL PROTEIN, SERUM 5.6 g/dL (6.4-8.2)
--- NOTE | 2019-05-23 22:11 | NUR ---
PT SATTING AT 95-100 ON RA.
--- NOTE | 2019-05-23 22:26 | NUR ---
NITROGLYCERIN IV STARTED AT 10MCG/MIN FOR SBP 201/73. WILL TITRATE PER ORDER.
--- NOTE | 2019-05-23 22:36 | NUR ---
PT'S BP 182/68 SO NITROGLYCERIN DRI0P TITRATED PER ORDER TO 15MCG/MIN (4.5ML). WILL CONT TO MONITOR.
--- NOTE | 2019-05-23 22:50 | NUR ---
BP 185/69. NITRO DRIP TITRATED TO 20MCG/MIN (6ML/HR). PT TOLERATING WELL.
--- NOTE | 2019-05-23 23:05 | NUR ---
PT'S BP 183/69. NITROGLYCERIN DRIP TITRATED TO 25MCG/MIN (7.5ML)
--- NOTE | 2019-05-23 23:14 | NUR ---
BP 181/69. NITRO DRIP TITRAUED PER ORDER.
--- NOTE | 2019-05-23 23:22 | NUR ---
BP 188/67 TITRATED PER ORDER- NITRO
[2019-05-23] MEDS ORDERED: HYDRALAZINE HY100 MG PO (23:28)
[2019-05-23] MEDS ORDERED: PROCARDIA XL90 MG PO (23:28)
[2019-05-23] MEDS ORDERED: LIPI10 PO (23:29)
[2019-05-23] MEDS ORDERED: CATAPRES0.1 MG PO (23:29)
--- NOTE | 2019-05-23 23:30 | NUR ---
BP 197/74 NITROGLYCERIN TITRATED PER ORDER
--- NOTE | 2019-05-23 23:39 | NUR ---
BP 200/81 NITROGLYCERIN DRIP INCREASED TO 45MCG/MIN PER ORDER
--- NOTE | 2019-05-23 23:49 | NUR ---
BP: 193/77 (115). TITRATED TO 50MCG/MIN (15ML/HR)
--- NOTE | 2019-05-24 | NUR ---
BP: 193/73 (113) NITRO DRIP INCREASED TITRATION TO 55MCG/MIN (16.5ML/HR).
[2019-05-24 00:05] LABS: microscopic required? YES; urine erythrocyte NEGATIVE (NEGATIVE)
[2019-05-24 00:11] LABS: T3 TOTAL 1.12 ng/mL
[2019-05-24 00:15] LABS: AMPHETAMINE QUAL UR NONE DETECTED (See below)
[2019-05-24 00:26] LABS: FREE T4 1.04 ng/dL (0.76-1.46); FREE THYROXINE INDEX 3.1 ug/dL (1.4-4.5); T4(THYROXINE) 8.5 ug/dL (4.7-13.3)
[2019-05-24 00:28] LABS: CHOLESTEROL/HDL RATIO 4.3
--- NOTE | 2019-05-24 00:29 | NUR ---
REPORT CALLED TO ICU DELLA
--- NOTE | 2019-05-24 00:30 | NUR ---
REPORT RECIEVED FROM SANDEEP SANTACRUZ. NURSING UPDATES. POC DISCUSSED. AWAITING PT ARRIVAL.
--- NOTE | 2019-05-24 00:42 | NUR ---
PT TRANSPORTED TO ICU VIA MONITOR BY JANENE HOPKINS AND NAYANA ROLON. PT IN NAD
--- NOTE | 2019-05-24 00:45 | NUR ---
PT ARRIVED FROM ED ACCOMPANIED BY SANDEEP SANATCRUZ AND EMT. HR 58, BP 193/75(112), RR 21, O2 97% ON 2LNC, T 97.9 A&OX4. SPEECH CLEAR AND APPROPRIATE. ABLE TO RESPOND TO COMMANDS AND COMMUNICATE NEEDS. PERRL JACQUES. EENT FREE OF DISCHARGE. N/C 2L TO JACQUES NARES MUCOUSA MOIST. PULSES STRONG BUE&BOUNDING BLE. NO EDEMA NOTED. CAP REFILL , 3 SEC. S1S2 TO AUSC. HR 58. SINUS FINA W/ NO DISTRESS. SKIN C/D/I. ABD SOFT AND ROUND. BS ACTIVE X4Q. PT VOIDS TO BEDSIDE COMMODE. CCHO DIET. RFA IV FLUSHING W/ 10CC'S. CALM AND COOPERATIVE W/ CARE. PT DENIES PAIN @ THIS TIME. NITRO DRIP INFUSING @ @ 55MCG/MIN.
[2019-05-24 01:09] VITALS: BP 193/75
--- NOTE | 2019-05-24 01:30 | NUR ---
TITRATED NITRO DRIP FROM 55MCG/MIN TO 75MCG/MIN PER PROTOCOL TO ATTEMPT SYSTOLIC BP < 160.
--- NOTE | 2019-05-24 01:53 | NUR ---
PT VOIDED ESTIMATED 100CC'S LIGHT YELLOW URINE TO BEDPAN. PT DENIES DISTRESS OR BURNING. WILL CONT TO MONITOR.
--- NOTE | 2019-05-24 02:09 | NUR ---
PT NOTIFIED OF BACK PAIN 10/26. CALMING MEASURES ATTEMPTED W/ TURNING TO NO AVAIL. ADM TYLENOL SEE JUL, WILL REASSESS.
--- NOTE | 2019-05-24 02:34 | NUR ---
TITRATED NITRO DRIP FROM 75MCG/MIN TO 100MCG/MIN PER PROTOCOL TO ATTEMPT SYSTOLIC BP < 160.
--- NOTE | 2019-05-24 03:30 | NUR ---
TITRATED NITRO DRIP FROM 100MCG/MIN TO 125MCG/MIN PER PROTOCOL TO ATTEMPT SYSTOLIC BP < 160.
--- NOTE | 2019-05-24 04:00 | NUR ---
TITRATED NITRO DRIP FROM 125MCG/MIN TO 150MCG/MIN PER PROTOCOL TO ATTEMPT SYSTOLIC BP < 160.
--- NOTE | 2019-05-24 05:00 | NUR ---
TITRATED NITRO DRIP FROM 150MCG/MIN TO 175MCG/MIN PER PROTOCOL TO ATTEMPT SYSTOLIC BP < 160.
--- NOTE | 2019-05-24 05:33 | NUR ---
TITRATED NITRO DRIP FROM 175MCG/MIN TO 150MCG/MIN PER PROTOCOL TO ATTEMPT SYSTOLIC BP < 160.
--- NOTE | 2019-05-24 05:41 | NUR ---
TITRATED N/C FROM 2L TO OFF PER PT TOLERATING AND SUFFICIENT O2 SATS. PT TOLERATING WELL. NO S/S OF RESP DISTRESS. O2 SAT 98%. WILL CONT TO MONITOR.
[2019-05-24 08:00] LABS: BASOPHIL % 0.2 % (0-2); PLATELET COUNT 239 x10^3mcL (130-400)
--- NOTE | 2019-05-24 08:00 | NUR ---
PAGED DR WALLIS AT THIS TIME REGARDING NITRO DRIP, TO SEE IF IT SHOULD BE CONTINUED. WILL AWAIT CALL AT THIS TIME.
[2019-05-24 08:10] LABS: CALCIUM 8.2 mg/dL (8.5-10.1); CARBON DIOXIDE 20.9 mmol/L (21-32); CHLORIDE SERUM 106 mmol/L (98-107); CREATININE SERUM 3.6 mg/dL (0.6-1.0); GLUCOSE SERUM 109 mg/dL (74-106); MAGNESIUM 1.8 mg/dL (1.8-2.4); POTASSIUM SERUM 3.1 mmol/L (3.5-5.1); SODIUM SERUM 139 mmol/L (136-145)
--- NOTE | 2019-05-24 08:10 | NUR ---
PER DR WALLIS, HOLD OFF ON NITRO DRIP AT THIS TIME AND GIVEN PATIENTS PO MEDICATION:NICARDIPINE PO AND HOME MED CLONIDINE, SHE WILL ALSO ORDER A ONE TIME ORDER FOR LASIX. WILL AWAIT ORDER AT THIS TIME. PRIMARY RN AWARE.
--- NOTE | 2019-05-24 08:15 | NUR ---
NITRO DRIP STOPPED AT THIS TIME PER DOCTOR ORDER. NIFEDIPINE PO AND LASIX IVP GIVEN (SEE EMAR). WILL CONTINUE TO MONITOR.
[2019-05-24 08:16] LABS: RED CELL DISTRIBUTION WIDTH 15.8 % (11.5-14.5)
[2019-05-24 08:27] VITALS: BP 186/73
--- NOTE | 2019-05-24 08:32 | NUR ---
CANCELLATION REQUESTED FOR ECHOCARDIOGRAM
--- NOTE | 2019-05-24 09:36 | NUR ---
B/P REMAINS ELEVATED: 186/63 DR IRVING NOTIFIED. PER DR IRVING SHE STS TO MONITOR AND TO GIVE HYDRALAZINE 20 MG PRN Q6. WILL AWAIT ORDER. SHE ALSO STATED TO GIVE HOME MED, NOTIFIED THAT 0.1 CLONIDINE ALREADY GIVEN. NO OTHER NEW ORDERS AT THIS TIME. WILL CONTINUE TO MONITOR AND AWAIT ORDER.
--- NOTE | 2019-05-24 09:38 | NUR ---
NIBP 186/63, MAP 130. DR. NICE MADE AWARE. ORDER TO HOLD OFF WITH THE NICARDIPINE DRIP AT THIS TIME AND CONTINUE ORAL HYPERTENSIVE MEDICATIONS AT THIS TIME. DR. NICE MADE AWARE NEXT ORAL HYDRALAZINE ORDER IS NOT DUE UNTIL 1400. DR. NICE WILL PLACE A HYDRALIZINE ORDER FOR 20 MG Q 6 HRS PRN. WILL CONTINUE TO MONITOR.
--- NOTE | 2019-05-24 10:51 | NUR ---
PATIENT ROUNDS WITH DR. MITCHELL AND RESIDENTS. CHARGE NURSE AND PRIMARY NURSE AT BEDSIDE. UPDATES PROVIDED AND POC DISCUSSED. WILL CONTINUE TO MONITOR.
--- NOTE | 2019-05-24 10:59 | NUR ---
MORNING ROUNDS DONE AT THIS TIME WITH DR. MITCHELL, MEDICAL RESIDENTS AND PRIMARY RN. ALL UPDATES PROVIDED AT THIS TIME. PLAN: HYDRALAZINE 20 MG IVP PRN AND HEAD CT, WILL AWAIT ORDER AND CONTINUE TO MONITOR.
[2019-05-24 11:03] VITALS: BP 191/73
--- NOTE | 2019-05-24 11:14 | NUR ---
PATIENT OFFLOOR FOR CT HEAD WITH SANDEEP CARRILLO VIA BED ATTACHED TO [employer]ATHODE [employer]KER.
[2019-05-24 15:44] VITALS: BP 157/61
--- NOTE | 2019-05-24 16:36 | NUR ---
CANCELLATION REQUESTED FOR ECHOCARDIOGRAM
[2019-05-24 19:28] VITALS: BP 137/51
--- NOTE | 2019-05-24 19:28 | NUR ---
RECEIVED REPORT FROM MORGAN HOPKINS. PT IS A/OX4. BREATHING IS E/U ON RA. 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 BED IN LOW POSITION. CALL LIGHT IN REACH. HOB ELEVATED 30 DEGREES. PT DENIES ANY CP AT THIS TIME. SEE SHIFT ASSESSMENT FOR FURTHER DETAIL.
--- NOTE | 2019-05-24 19:30 | NUR ---
SPOKE TO DR. BOLIVAR VIA TELEPHONE. UPDATED ON PT'S STATUS. ALL QUESTIONS/CONCERNS ADDRESSED. NO NEW ORDERS RECEIVED
[2019-05-24 23:05] VITALS: BP 146/55
[2019-05-25] VITALS (11 sets, daily range): BP systolic 147–168; BP diastolic 48–65; Ht 165.1 cm; Wt 59.8 kg
--- NOTE | 2019-05-25 01:15 | NUR ---
PT VOIDED 300 ML OF YELLOW COLORED URINE. PERICARE PROVIDED
--- NOTE | 2019-05-25 05:05 | NUR ---
PT C/O FEELING NAUSEAS. PT MEDICATED WITH ZOFRAN PER EMAR. WILL CONT TO MONITOR.
[2019-05-25 05:33] LABS: BASOPHIL % 0.4 % (0-2); PLATELET COUNT 294 x10^3mcL (130-400)
[2019-05-25 05:36] LABS: RED CELL DISTRIBUTION WIDTH 15.9 % (11.5-14.5)
[2019-05-25 05:46] LABS: CARBON DIOXIDE 21.3 mmol/L (21-32); CHLORIDE SERUM 104 mmol/L (98-107); CREATININE SERUM 3.5 mg/dL (0.6-1.0); GLUCOSE SERUM 97 mg/dL (74-106); MAGNESIUM 1.9 mg/dL (1.8-2.4); SODIUM SERUM 140 mmol/L (136-145)
--- NOTE | 2019-05-25 05:52 | NUR ---
SPOKE TO PT'S SON ZAIRE VIA TELEPHONE. UPDATED ON PT'S CURRENT STATUS. ALL QUESTIONS/CONCERNS ADDRESSED
[2019-05-25 06:02] LABS: POTASSIUM SERUM 2.9 mmol/L (3.5-5.1)
--- NOTE | 2019-05-25 06:05 | NUR ---
DR. IRVING AT BEDSIDE. UPDATED ON PT'S STATUS. MADE AWARE OF CRITICAL LAB RESULT: POTASSIUM 2.9. AWAITING FURTHER ORDERS
--- NOTE | 2019-05-25 07:08 | NUR ---
REOPRT GIVEN TO LEIGH ANN HOPKINS FOR CONTINUITY OF CARE. ALL QUESTIONS/CONCERNS ADDRESSED. ENDORSING ALL CARE
--- NOTE | 2019-05-25 07:28 | NUR ---
RECEIVED PATIENT FROM [facility] NURSE, PATIENT A/OX4 SITTING UP AT EDGE OF BED EATING BREAKFAST MEAL. DENIES HEADACHE/DIZZINESS AT THIS TIME, DENIES CHEST PAIN/PALPITATION. LUNGS CTA, REPORTS DRY COUGH OCCASIONAL, BREATHING E/U AT REST. SKIN PALE, TRACE EDEMA TO BUE, PERIPHERAL PLUSES PALPABLE, DENIES NUMBNESS/TINGLING. SCD'S IN PLACE. MILD ECCHYMOSIS TO BUE'S. REPORTS MILD NAUSEA THIS AM, BOWEL SOUNDS ACTIVE, ABD SOFT/NONDISTENDED/NONTENDER. REPORTS PASSING GAS. DENIES DYSURIA. SAFETY PREC REINFORCED.
--- NOTE | 2019-05-25 11:18 | NUR ---
DR BARTH AND MEDICAL TEAM WAS AT BEDSIDE, DISCUSSED PLAN OF CARE WITH PATIENT. WAITING FOR NEPHRO AND CARDIO CONSULT, PATIENT MAY BE TRANSFERRED TO [facility] TODAY. PATIENT COOPERATIVE WITH PLAN OF CARE. DR IRVING INFORMED OF POTASSIUM 2.9, NEW ORDERS TO BE PLACED.
--- NOTE | 2019-05-25 11:19 | NUR ---
PATIENT ROUNDS WITH [facility] AND RESIDENTS. CHARGE NURSE AND PRIMARY NURSE AT BEDSIDE. UPDATES PROVIDED AND POC DICUSSED. WILL CONTINUE TO MONITOR.
--- NOTE | 2019-05-25 12:05 | NUR ---
BEDBATH GIVEN, GOWN CHANGED, HYGEINE ASSISTANCE PROVIDED. VOIDED IN BEDPAN. DAUGHTER AND MACHINE DEBURRER AT BEDSIDE. ORDER RECEIVED TO TRANSFER PATIENT TO [facility] UNIT, PENDING BED.
--- NOTE | 2019-05-25 16:41 | NUR ---
PATIENT GOING TO ROOM 210A, REPORT GIVEN TO SANDEEP WADDELL. TAKING PATIENT VIA BED. NO SIGN OF ACUTE DISTRESS AT THIS TIME.
--- NOTE | 2019-05-25 17:05 | NUR ---
RECEIVED PT FROM ICU. BP 173/62 HR 75 O2 SAT 93%. PT AWAKE, ALERT. A/OX4. PT ON ROOM AIR WITH SOME SOB NOTED. IV ACCESS RIGHT FA INFUSING KCL FROM THE ICU. PT DENIES PAIN, NAUSEA AT THIS TIME. PT STATES SHE "JUST WANTS TO REST". FAMILY AT BEDSIDE. PT ORIENTED TO ROOM. SAFETY MEASURES IN PLACE, BED LOW AND LOCKED. CALL LIGHT WITHIN REACH.
--- NOTE | 2019-05-25 18:13 | NUR ---
PT BP 162/65 AT THIS TIME. WILL MONITOR.
--- NOTE | 2019-05-25 18:51 | NUR ---
PT COMPLAINING OF SOB AT THIS TIME. O2 SAT 94% ON ROOM AIR. PT REPOSITIONED FOR COMFORT. WILL CONTINUE TO MONITOR AND ENDORSE CARE TO EDGER MACHINE HELPER.
--- NOTE | 2019-05-25 19:20 | NUR ---
RECEIVED REPORT FROM NADIRA HOPKINS. PT IS AAOX4 AND DENIES HEADACHE OR DIZZINESS AT THIS TIME. PT HAS RIGHT EYE BLINDNESS. PT IS ON TELE #31, NSR WITH HR 77. PT DENIES CHEST PAIN OR PRESSURE AT THIS TIME. PT PULSES PALPABLE AND EDEMA IS PRESENT TO BUE. PT LUNG SOUNDS CTA ON RA. PT BREATHING EVEN AND UNLABORED. PT DENIES SOB OR RESPIRATORY DISTRESS AT THIS TIME. PT ABD SOFT AND NONDISTENDED. PT BOWEL SOUNDS ACTIVE X4. PT DENIES N/V/D AT THIS TIME. PT IS CONTINENT, BUT USES BEDPAN AT THIS TIME. PT HAS MILD GENERALIZED WEAKNESS. PT IS FALL RISK. PT USES WALKER AT BASELINE. PT SKIN IS INTACT. PT LFA IV IS PATENT AND INTACT. CALL LIGHT WITHIN REACH. BED IN LOWEST POSITION. SIDE RAILS X2 UP. WILL CONTINUE TO MONITOR.
[2019-05-26 06:06] VITALS: BP 106/70
--- NOTE | 2019-05-26 06:49 | NUR ---
PT SLEPT INTERMITTENTLY THROUGHOUT THE SHIFT. PT COMPLIED WITH NURSING CARE THROUGHOUT THE SHIFT. COMFORT AND SAFETY MEASURES MAINTAINED DURING THE SHIFT. ALL QUESTIONS AND CONCERNS ADDRESSED. WILL CONTINUE TO MONITOR. WILL ENDORSE CARE TO DAY SHIFT NURSE.
--- NOTE | 2019-05-26 07:32 | NUR ---
ENDORSED CARE TO MARGO HOPKINS. ALL QUESTIONS AND CONCERNS ANSWERED.
--- NOTE | 2019-05-26 08:00 | NUR ---
RECEIVED PATIENT AWAKE AND ALERT. SHE HAS NOTED BLINDNESS TO THE RIGHT EYE AND WEARS DENTURES REMOVED FOR PROCEDURE INDICATED. PATIENT AHS BEEN NPO FOR DIALYSIS TUNNEL CATH PLACEMENT. SHE AHS CHECKLIST STARTED AND RECEIVED THE ROCIO BATH INDICATED. PATIENT HAS RECEIVED A DOSE OF HYDRALOZINE THIS AM AND BP WAS WNL AT THAT TIME. PATIENT THOUGH NOW IS ELEVATED AGAIN AT 207/77. GAVE THE ADALAT AND THE LASIX IVP INDICATED. PATIENT HAS BEEN ASYMTOMATIC AT THIS TIME .PATIENT HAS TRACE EDEMA TO THE UPPER EXTREMITIES AND MINIMAL TO THE LOWER. SHE HAS BEEN USING THE BEDPAN AND IS STILL URINATING. SHE DOES SO FREQUENTLY AND HAS PROTIEN, WBC AND BACTERIA NOTED IN THE URINE. PATIENT HAS NOTED LABS OF H AND H OF 8.4/26, THE BUN AT 38.4, AND CREATININE AT 3.4. SHE HAS BEEN WITH WALKER AT HOME BUT HAS BEEN WEAK AND ON BEDREST SINCE HER ARRIVAL TO THE HOSPITAL. PATIENT HAS HX IF HTN, CKD, PRE DIABETES, COLON CANCER WTIH RESECTION AND CHRONIC RENAL FAILURE. SHE HAS AN ALLERGY TO HYDORMORPHONE. SHE DENIES SOB AT THIS TIME AND HAS BEEN ON 02 AT 2 LITERS VIA NASAL CANNULA. SHE HAD PAIN MEDICATION LAST NIGHT BUT IS JUST SLEEPY AND DOES NOT COMPLAIN OF PAIN AT THIS TIME. THE LEG CRAMPS WERE RESOLVED.
[2019-05-26 08:27] VITALS: BP 207/71
[2019-05-26 10:03] LABS: BASOPHIL % 0.4 % (0-2); PLATELET COUNT 281 x10^3mcL (130-400)
[2019-05-26 10:10] LABS: CALCIUM 8.7 mg/dL (8.5-10.1); CARBON DIOXIDE 24.1 mmol/L (21-32); CHLORIDE SERUM 105 mmol/L (98-107); CREATININE SERUM 3.4 mg/dL (0.6-1.0); GLUCOSE SERUM 98 mg/dL (74-106); POTASSIUM SERUM 3.5 mmol/L (3.5-5.1); SODIUM SERUM 140 mmol/L (136-145)
[2019-05-26 10:15] LABS: ALKALINE PHOSPHATASE 46 U/L (46-116); ALT/SGPT 17 U/L (14-59); AST/SGOT 11 U/L (15-37); BILIRUBIN TOTAL 0.4 mg/dL (0.20-1.00)
[2019-05-26 10:16] LABS: ALBUMIN 2.6 g/dL (3.4-5.0); TOTAL PROTEIN, SERUM 6.1 g/dL (6.4-8.2)
[2019-05-26 10:32] VITALS: BP 161/77
--- NOTE | 2019-05-26 10:48 | NUR ---
PATIENT DOWN FOR PROCEDURE AT THIS TIME GAVE HYDROLOZINE INDICATED FOR BP WITH SYSTOLIC AT 217. PATIENT HAS JUST HAD A BP OF 161/77 NOT BUT 10 MINUTES PRIOR. THE OR STAFF RECHECKED AND THE SYSTOLIC WAS ELEVATED ON BOTH ARMS. CHECKLIST COMPLETED AND FAMILY AT BEDSIDE OF HIRAL AND SHE SPOKE WITH ALESHIA ON THE PHONE PRIOR TO TRANSFER TO OR. AWAITING ARRIVAL BACK TO THE FLOOR POST OPERATIVE.
[2019-05-26 13:38] VITALS: BP 179/73
--- NOTE | 2019-05-26 14:09 | NUR ---
PATIENT RECEIVED POST OPERATIVE AND WITH SANDBAG TO THE RIGHT SIDE OF NECK. PATIENT HAS BP STILL ELEVATED AT 178/74 AND SHE HAD RECEIVED LABETALOL INDICATED TIMES TWO. PATIENT HAS BEEN ELEVATED PRIOR THE SURGERY AND IN THE AM WELL. SHE RECEIVED ALTALAT 90MG , 20MG OF IVP LASIX. HYDROLOZINE TIMES TWO WITH THE LAST DOSING RIGHT LEAVING FOR THE OR FOR HER TUNNEL CATH PLACEMENT. PATIENT BACK ON THE FLOOR AND IT IS IF SHE NEVER WAS COVERED FOR THE BP AT ALL. IT HAS NOT BEEN EFFECTIVE HOPED. SHE HAS COMPLAINED OF PAIN TO THE RIGHT SIDE OF THE NECK AND GAVE NORCO ORDERED. WILL CONTINUE TO MONITOR. SHE PLACED ON THE BEDPAN PRIOR AND POST THE PROCEDURE SHE HAD URINATED 500CC PRIOR AND THEN ANOTHER POST THE PROCEDURE. Letitia
[2019-05-26 17:11] VITALS: BP 169/71
--- NOTE | 2019-05-26 17:50 | NUR ---
PATIENT HAS BEEN GIVEN PPD AND TO THE LEFT FOREARM. CIRCLED THE AREA AND LOT AND EXPIRATION ON THE GRAFT IN THE CHART. PATIENT IS AWARE OF INDICATION. PATIENT IS WITH THRIST AND DOES NOT WANT THE "STONE" TO HER NECK. ADVISED THE SANDBAG WILL BE REMOVED IN A HALF AN HOUR. PATIENT IS STATES "SHE FEELS SHE NEEDS TO URINATE, BUT CAN'T." PATIENT HAS BEEN PLACED ON THE BEDPAN AND URINATING REGULARLY BUT NOW SHE STATES SHE HAS AN URGE. PATIENT IS DROUSY BUT RESPONSIVE. WILL ENDORSE THE TUBERCULIN TEST TO ON COMIING STAFF.
--- NOTE | 2019-05-26 19:20 | NUR ---
RECEIVED PT IN BED AWAKE, ALERT,ORIENTED X4. DAUGHTER AT BEDSIDE. LUNG SOUNDS CLEAR. NO SOB AT THIS TIME. BOWEL SOUNDS ACTIVE. SHE HAS NO C/O PAIN AT THIS TIME. W/ HL TO RTFA INTACT. CALL LIGHT W/IN REACH.
[2019-05-26 21:30] VITALS: BP 170/68
--- NOTE | 2019-05-27 02:19 | NUR ---
PT APPEARS TO BE SLEEPING COMFORTABLY.
--- NOTE | 2019-05-27 05:16 | NUR ---
PT SLEPT THROUGH THE NIGHT. SHE REMAINS ALERT AND ORIENTED X4. SHE HAD NO C/O PAIN. NO EPISODE OF SOB. NO BM NOTED. HL TO RTFA INTACT. ALL NEEDS ATTENDED TO.
[2019-05-27 05:34] VITALS: BP 173/68
[2019-05-27 06:06] LABS: BASOPHIL % 0.1 % (0-2); PLATELET COUNT 287 x10^3mcL (130-400)
[2019-05-27 06:20] LABS: RED CELL DISTRIBUTION WIDTH 15.7 % (11.5-14.5)
[2019-05-27 06:27] LABS: CALCIUM 8.8 mg/dL (8.5-10.1); CARBON DIOXIDE 25.3 mmol/L (21-32); CHLORIDE SERUM 105 mmol/L (98-107); CREATININE SERUM 3.4 mg/dL (0.6-1.0); GLUCOSE SERUM 81 mg/dL (74-106); MAGNESIUM 1.7 mg/dL (1.8-2.4); PHOSPHOROUS 5.3 mg/dL (2.5-4.9); POTASSIUM SERUM 3.5 mmol/L (3.5-5.1); SODIUM SERUM 142 mmol/L (136-145)
--- NOTE | 2019-05-27 09:00 | NUR ---
PATIENT SEEN BY THE RESIDENTS AND PLAN OF CARE DISCUSSED. PATIENT COMPLAINS OF PAIN TO THE BACK AND SHE HAS COMPLAINED OF FEELING SO TIRED. THE DOCTORS WILL ORDER REGULAR POSITIONING AND OOB TO CHAIR FOR MEALS AND TO APPLY LIDOCAINE PATCH TO THE LOWER BACK AND THEY ALSO ORDERED LACTULOSE FOR CONSTIPATION AND COLACE.
[2019-05-27 09:25] VITALS: BP 197/74
--- NOTE | 2019-05-27 10:23 | NUR ---
PATIENT GIVEN ZOFRAN FOR NAUSEA AND WILL MONITOR FOR EFFECTIVENESS. PATIENT BEEN OOB TO THE RESTROOM AND TOLERATED WELL. DAUGHTER AT BEDSIDE AND SUPPORTIVE WITH CARE. AWAITING DIALYSIS AND PER NIGHTSHIFT THE BP MEDICATIONS ARE TO BE HELD. THE BP THOUGH IS AT 197/77. WILL CONTINUE TO MONITOR.
--- NOTE | 2019-05-27 10:45 | NUR ---
THE RN MCGUIRE ARRIVED FOR DIALYSIS. PATIENT IS SLEEPING AT THIS TIME. WILL MONITOR AND ADVISED RN MCGUIRE OF THE ELEVATED BP AND SHE WILL CONTINUE TO MONITOR DURING THE DIALYSIS PROCESS AND LET STAFF KNOW IF ANY BP MEDICATION IS INDICATED.
--- NOTE | 2019-05-27 11:51 | NUR ---
GAVE THE NORVASC PER DIALYSIS NURSE AND WILL CONTINUE TO MONITOR. THE BP WAS STILL UP IN THE 190'S.
[2019-05-27 13:03] VITALS: BP 154/70
--- NOTE | 2019-05-27 13:23 | NUR ---
APPLIED THE LIDOCAINE PATCH AND GAVE TYLENOL PER PATIENT REQUEST FOR PAIN. WILL CONTINUE TO MONITOR.
--- NOTE | 2019-05-27 15:58 | NUR ---
PATIENT HAD BEEN GIVEN ZOFRAN FOR NAUSEA AND EFFECTIVE AND THEN EARLIER WAS GIVEN TYLENOL FOR PAIN AND EFFECTIVE.
[2019-05-27 17:16] VITALS: BP 140/53
--- NOTE | 2019-05-27 17:51 | NUR ---
PATIENT WAS ASISTED BY THE FAMILY AND ENCOURAGE TO EAT AT THIS TIME. SHE HAS NO COMPLAINTS OF PAIN AT THIS TIME.
--- NOTE | 2019-05-27 19:20 | NUR ---
RECEIVED PT IN BED AWAKE, ALERT,ORIENTED X4. LUNG SOUNDS CLEAR. NO SOB ON ROOM AIR. BOWEL SOUNDS ACTIVE. PT WAS GIVEN LACTULOSE AND NO BM YET AT THIS TIME. W/ HL TO RTFA INTACT.PT HAS NO C/O PAIN OR DISCOMFORT AT THIS TIME. CALL LIGHT W/IN REACH.
[2019-05-27 21:06] VITALS: BP 136/56
--- NOTE | 2019-05-28 | NUR ---
PT CALM AND APPEARS TO BE SLEEPING COMFORTABLY.
--- NOTE | 2019-05-28 05:03 | NUR ---
PT SLEPT AT LONG INTERVALS. SHE HAD NO C/O PAIN. NO EPISODE OF RESP. DISTRESS. SHE REMAINS ALERT AND ORIENTED X4. PT HAD NO BM NOTED. HL TO RTFA INTACT AND PATENT.
[2019-05-28 05:05] VITALS: BP 152/65
--- NOTE | 2019-05-28 07:55 | NUR ---
RECEIVED PATIENT FROM SANDEEP BRICENO. PATIENT OBSERVED SEATED AT BEDSIDE, NO COMPLAINTS OF CP OF SOB. SPOKE WITH PATIENT ABOUT PLAN OF CARE FOR TODAY INCLUDING AM MEDICATIONS, AND TO WAIT FOR RESIDENTS TO COME SPEAK WITH PATIENT. PATIENT VERBALIZES UNDERSTANDING AND PATIENT AGREES. CALL LIGHT IN REACH AT THIS TIME.
[2019-05-28 08:01] LABS: BASOPHIL % 0.1 % (0-2); PLATELET COUNT 247 x10^3mcL (130-400)
[2019-05-28 08:05] LABS: CALCIUM 8.3 mg/dL (8.5-10.1); CARBON DIOXIDE 30.8 mmol/L (21-32); CHLORIDE SERUM 102 mmol/L (98-107); CREATININE SERUM 2.5 mg/dL (0.6-1.0); GLUCOSE SERUM 86 mg/dL (74-106); MAGNESIUM 1.7 mg/dL (1.8-2.4); PHOSPHOROUS 3.6 mg/dL (2.5-4.9); POTASSIUM SERUM 3.3 mmol/L (3.5-5.1); SODIUM SERUM 141 mmol/L (136-145)
[2019-05-28 08:07] LABS: RED CELL DISTRIBUTION WIDTH 15.4 % (11.5-14.5)
[2019-05-28 08:11] VITALS: BP 137/69
--- NOTE | 2019-05-28 10:33 | NUR ---
DR BARTH AND DR IRVING IN TO SEE PATIENT, STATES PATIENT TO BE TRANSFERRED TO MED-SURG.
--- NOTE | 2019-05-28 10:58 | NUR ---
RECEIVED PATIENT FROM GABRIEL RN AND RESUME CARE AWAKE/ALERT IN BED, NO C/O PAIN. C/O LIGHTHEADED. INSTRUCT PATIENT DON'T GET UP ALONE ASK FOR ASSISTANCE. CALL LIGHT WITHIN REACH.
[2019-05-28 12:39] VITALS: BP 108/63
--- NOTE | 2019-05-28 13:19 | NUR ---
PATIENT SAT UP AT SIDE OF BED, EATING. ASSIST TO OPEN JUICES. NUTTRITION DIRECTOR MEDICAID AT BEDSIDE SPEAK TO PATIENT. CALL LIGHT WITHIN REACH.
--- NOTE | 2019-05-28 14:24 | NUR ---
PATIENT IN BED AWAKE/ALERT, DENIES PAIN. HYDRALAZINE 100MG PO ADMINISTERED AND PATIENT TOLERATED, BP152/58, HR 82. REPOSITIONED. CALL LIGHT WITHIN REACH.
--- NOTE | 2019-05-28 15:02 | NUR ---
recommended to start nepro 1 can qd, MD Laboy agreed
--- NOTE | 2019-05-28 15:02 | NUR ---
Initial Nutrition Assessment: Lou Mendoza 210A Dx: CHF PMHx: HTN, pre-DM, CKD PSHx: colon resection d/t colon cancer Labs: 05/28/19: K: 3.3, B/C: 19/2.5, alb: 2.6, vit B12: 1848H, HgbA1C: 4.4% Meds: Lipitor 10 mg qd, Lasix 20 mg qd, heparin, norco Diet: Renal diet (was on cardiac diet prior) PO intake since admission: 15-60% po intakes since admission Ht: 65 inches Wt: 59.8kg/131/6# BMI: 21.9 Bed scale: 134# IBW: 125# %IBW: 105% UBW: 125# Age: 83 y/o F Food Allergies: none Skin: Milton: 18 Edema: no edema noted GI: Last BM: 05/24/19 RD Note: spoke with pt at bedside while she was eating lunch, pt report improving appetite and likes the food, no nutritional concerns or questions from pt, said she used to be very overweight but has lost weight in the past few years because of colon cancer, per MD pt is started on dialysis and will be a permanent dialysis patient. Per H&P 83 y/o F with PMH of HTN, CKD, and pre DM who brought from home to ED due to SOB 2 days ago. Patient reports feeling gradual onset of SOB for 1 week which progressively worsening snice 2 day ago associated with dry cough, orthopnea, generalized weakness. Patient reports that she was admitted here in [facility] 1 week ago and since that time and she is feeling very weak and sleepy all the day. Problem with: N/V/D/C: none Problems with: Chewing: Swallowing: none Current appetite: good Recent wt change: 6# %wt change: 3% Vitamin/Supplement use: none Special diet at home: Regular Physical activity: no Nutrition education given (specify specific nutrition education and handout given): reviewed the renal diet briefly, explained to pt that she will be speaking with a dialysis RD at the outpatient dialysis clinic. Food-drug interactions? Education given? n/a Estimated Nutritional Needs Based on current body weight 59.5kg/131# Energy: 4496-3082 kcal/day (25-30 kcal/kg) Protein: 60 g/day (1.0 g/kg) Fluid: 1786 mL/day (1 mL/kcal) Nutrition Diagnosis: 1. Unintentional weight loss r/t decreased appetite and weakness as evidenced reported 6# weight loss in last 2 weeks Intervention 1. Start Nepro 1 can qd. 2. Continue renal diet. Monitor/Evaluate Goal: PO intake at least 75% of estimated needs Monitor: PO intake, Labs, GI function F/U MR in 3-5 days
[2019-05-28 16:14] VITALS: BP 133/60
--- NOTE | 2019-05-28 16:38 | NUR ---
PATIENT RESTING IN BED AWAKE/ALERT, NO COMPLAINS. FAMILY MEMBERS AT BEDSIDE. UPDATE POC WITH SON. NEEDS MET. CALL LIGHT WITHIN REACH.
--- NOTE | 2019-05-28 18:55 | NUR ---
PATIENT RESTING IN BED COMFORTABLE, NO COMPLAIN. NEEDS MET. CALL LIGHT WITHIN REACH.
--- NOTE | 2019-05-28 19:05 | NUR ---
RECEIVED REPORT FROM DAY SHIFT NURSE, ABRAHAN HOPKINS. PT IS AAOX4. SPEECH IS CLEAR. DENIES SWENSON. R EYE POOR VISION. M/S PT. DENIES CHEST PAIN/CHEST PRESSURE. PULSES ARE PALPABLE. NO EDMEA NOTED. BREATHING IS EVEN AND UNLABORED ON RA. ABD IS SOFT AND NONDISTENDED. BS ACTIVE. DENIES N/V/D. VOIDS FREELY. RIJ BROOKLYNN CATH CDI. NO ERYTHEMA NOTED. GENERALIZED WEAKNESS. BASELINE WALKER. KPAD IN PLACE, WILL REMOVE AT 2100. SKIN INTACT. NO ERYTHEMA NOTED. DENIES ANY PAIN AT THIS TIME. IV TO RFA DRY AND INTACT. NO ERYTHEMA NOTED. BED IN LOWEST POSITION. CALL LIGHT WITHIN REACH. WILL CONTINUE TO MONITOR.
[2019-05-28 20:40] VITALS: BP 160/60
--- NOTE | 2019-05-28 21:30 | NUR ---
ROUTINE MEDICATIONS WERE GIVEN AND TOLERATED WELL. NO ACUTE DISTRESS NOTED. DENIES PAIN AT THIS TIME. BREATHING IS EVEN AND UNLABORED ON RA. NO SIGNS OF RESP DISTRESS. PT REPOSITIONED AT THIS TIME. PT ASKING FOR SNACKS, PROVIDED TUNA SANDWICH. BED IN LOWEST POSITION. CALL LIGHT WITHIN REACH. WILL CONTINUE TO MONITOR.
--- NOTE | 2019-05-28 22:18 | NUR ---
PT C/O PAIN ON RIJ WITH BROOKLYNN CATH. MEDICATED WITH TYLENOL PRN PER JUL ORDER. WILL REASSESS AND CHECK EFFECTIVENESS.
--- NOTE | 2019-05-29 00:25 | NUR ---
ASSISTED PT TO BED SANTIAGO. DENIES ANY PAIN AT THIS TIME. BREATHING IS EVEN AND UNLABORED ON RA. BED IN LOWEST POSITION. CALL LIGHT WITHIN REACH. WILL CONTINUE TO MONITOR.
--- NOTE | 2019-05-29 02:18 | NUR ---
PT IS RESTING COMFORTABLY IN BED WITH EYES CLOSED, BUT EASILY AROUSABLE WHEN SPOKEN TO. BREATHING IS EVEN AND UNLABORED ON RA. NO SIGNS OF RESP DISTRESS. BED IN LOWEST POSITION. CALL LIGHT WITHIN REACH. WILL CONTINUE TO MONITOR.
[2019-05-29 05:48] VITALS: BP 108/57
[2019-05-29 06:32] LABS: BASOPHIL % 0.4 % (0-2); PLATELET COUNT 225 x10^3mcL (130-400)
[2019-05-29 06:57] LABS: CARBON DIOXIDE 29.3 mmol/L (21-32); CHLORIDE SERUM 95 mmol/L (98-107); GLUCOSE SERUM 106 mg/dL (74-106); MAGNESIUM 1.8 mg/dL (1.8-2.4); PHOSPHOROUS 3.3 mg/dL (2.5-4.9); POTASSIUM SERUM 3.1 mmol/L (3.5-5.1); SODIUM SERUM 131 mmol/L (136-145)
[2019-05-29 06:58] VITALS: BP 149/66
--- NOTE | 2019-05-29 07:30 | NUR ---
ALERT AND ORIENTED. BREATHING FREELY ON RA. C/O CHRONIC BACK PAIN. PLACED ON K PAD. SL TO RT HAND. MED SURG PT. ASSISTED WITH BEDPAN, REPOSITIONED FOR COMFORT AND BREAKFAST. CALL LIGHT WITHIN REACH.
[2019-05-29 08:09] LABS: RED CELL DISTRIBUTION WIDTH 15.2 % (11.5-14.5)
[2019-05-29 09:24] VITALS: BP 155/62
[2019-05-29 12:42] VITALS: BP 166/63
--- NOTE | 2019-05-29 15:13 | NUR ---
MCGUIRE HERE TO START HEMODIALYSIS.
--- NOTE | 2019-05-29 17:00 | NUR ---
ISAAC COMPLETED. 1L OUT.
[2019-05-29 17:03] VITALS: BP 106/51
--- NOTE | 2019-05-29 17:55 | NUR ---
CK PPD TEST TO LEFT FA. (-).
--- NOTE | 2019-05-29 19:25 | NUR ---
PT RECEIVED A/O X4, FORGETFUL AT TIMES,ABLE TO MAKE NEEDS KNOWN. POOR VISION TO LT EYE, BLIND TO RT EYE. MED-SURG, PT DENIES ANY CP/PRESSURE. PULSES PALPABLE, NO EDEMA PRESENT. BREATHING IS EVEN AND UNLABORED ON RA, PT DENIES SOB, NO RESP DISTRESS OBSERVED. ABD SOFT AND NONDISTENDED, DENIES N/V. VOIDS FREELY USING BEDPAN. GENERALIZED WEAKNESS, K-PAD TO BACK. PT HAD HEMODIALYSIS TODAY WITH 1L OUTPUT, TUNNEL CATH TO RIGHT UPPER CHEST, SITE WNL, DRSG CDI. IV TO RW, PATENT AND INTACT, SITE WNL. NO ACUTE DISTRESS NOTED. BED IN LOWEST SETTING, SIDE RAILS UP X2, CALL LIGHT WITHIN REACH. FALL PRECAUTIONS IN PLACE. WILL CONT TO MONITOR.
--- NOTE | 2019-05-29 19:48 | NUR ---
ASSIST WITH REPOSITIONING. NO RESP DISTRESS ON RA. LIDOCAINE PATCH TO LOWER BACK. LYING ON KPAD. SL TO RT HAND. DIALYSIS TODAY 1L OUT. NEW DRESSING TO RT CHEST BROOKLYNN CATH SITE. ASKS FOR BEDPAN. NO BM TODAY. NONE SINCE 05/24/2019. HAS PRN ORDER FOR COLACE. CALL LIGHT WITHIN REACH. ALERT AND ORIENTED.
[2019-05-29 20:59] VITALS: BP 118/46
--- NOTE | 2019-05-29 21:02 | NUR ---
PT C/O CONSTIPATION, PRN COLACE GIVEN PER EMAR. NO ACUTE DISTRESS NOTED. WILL CONT TO MONITOR.
--- NOTE | 2019-05-30 01:56 | NUR ---
PROCRIT NOT GIVEN TO PT AFTER HEMODIALYSIS WAS COMPLETED. DR NGUYEN CALLED AND MADE AWARE. PER RESIDENT, OKAY TO GIVE PROCRIT NOW. CALLED PHARMACIST FOR MEDICATION, PER PHARMACIST WHITLEY, "WE DONT GIVE PROCRIT OVER NIGHT, BUT WE CAN START IT IN THE MORNING." DR NGUYEN MADE AWARE. WILL ENDORSE INFORMATION TO AM NURSE. CHARGE NURSE MARIELA AWARE.
[2019-05-30 05:21] VITALS: BP 139/59
--- NOTE | 2019-05-30 06:24 | NUR ---
PT SLEPT WELL THROUGHOUT THE EVENING. BREATHING IS EVEN AND UNLABORED, NO RESP DISTRESS NOTED. PT DENIES HAVING ANY PAIN AT THIS TIME. TUNNEL CATH IN PLACE TO RT UPPER CHEST, SITE WNL. SL TO RW INTACT. NO ACUTE CHANGES ENCOUNTERED DURING SHIFT. ALL NEEDS MET AND ANTICIPATED. BED ALARM ON. CALL LIGHT WITHIN REACH. WILL ENDORSE CARE TO AM NURSE.
--- NOTE | 2019-05-30 07:30 | NUR ---
RESTING QUIETLY. BREATHING FREELY ON RA. REPOSITIONED PT FOR BREAKFAST. SAT UP TO EDGE OF BED. C/O CONSTIPATION. JUTE BAG CUTTING MACHINE OPERATOR WILL GIVE ORDER FOR MILK OF MAG. SL TO RT FA. MED SURG PT. ASSIST W/ BRP. GENERALIZED WEAKNESS. CALL LIGHT WITHIN REACH. CONTINUES ON RT. LUNG SOUNDS CLEAR,DIMINISHED.
[2019-05-30 07:42] LABS: CALCIUM 7.8 mg/dL (8.5-10.1); CARBON DIOXIDE 30.4 mmol/L (21-32); CHLORIDE SERUM 104 mmol/L (98-107); CREATININE SERUM 2.1 mg/dL (0.6-1.0); GLUCOSE SERUM 97 mg/dL (74-106); POTASSIUM SERUM 3.6 mmol/L (3.5-5.1); SODIUM SERUM 140 mmol/L (136-145)
[2019-05-30 07:49] LABS: BASOPHIL % 0.2 % (0-2); PLATELET COUNT 190 x10^3mcL (130-400)
[2019-05-30 07:56] LABS: RED CELL DISTRIBUTION WIDTH 15.2 % (11.5-14.5)
[2019-05-30 08:57] VITALS: BP 140/51
[2019-05-30 13:00] VITALS: BP 147/55
[2019-05-30 17:27] VITALS: BP 132/60
--- NOTE | 2019-05-30 19:20 | NUR ---
PT RECEIVED A/O X4, FORGETFUL, ABLE TO MAKE NEEDS KNOWN. POOR VISION TO LT EYE, BLIND TO RT EYE. MED-SURG, PT DENIES ANY CP/PRESSURE. PULSES PALPABLE, NO EDEMA PRESENT. BREATHING IS EVEN AND UNLABORED ON RA, PT DENIES SOB, NO RESP DISTRESS OBSERVED. ABD SOFT AND NONDISTENDED, DENIES N/V. VOIDS FREELY USING BEDPAN/BRP WITH ASSIST. GENERALIZED WEAKNESS, K-PAD TO BACK. TUNNEL CATH TO RIGHT UPPER CHEST, SITE WNL, DRSG CDI. IV TO RW, PATENT AND INTACT, SITE WNL. NO ACUTE DISTRESS NOTED. BED IN LOWEST SETTING, SIDE RAILS UP X2, CALL LIGHT WITHIN REACH. FALL PRECAUTIONS IN PLACE. WILL CONT TO MONITOR.
--- NOTE | 2019-05-30 19:50 | NUR ---
RESTING QUIETLY. CONTINUES TO BE UNSTEADY ON HER FEET. RECEIVED MOM FOR CONSTIPATION TODAY NO BM YET. CONTINUES TO VOID AND BE ON DIALYSIS. BREATHING FREELY ON RA. PT WILL MOST LIKELY BE GOING TO [facility] TOMORROW. NO C/O PAIN. ASSIST WITH MOST ADL'S. CALL LIGHT WITHIN REACH.
[2019-05-30 20:17] VITALS: BP 99/60
--- NOTE | 2019-05-30 21:28 | NUR ---
PT C/O CONSTIPATION, PRN COLACE GIVEN PER EMAR. NO ACUTE DISTRESS NOTED. WILL CONT TO MONITOR.
--- NOTE | 2019-05-31 00:41 | NUR ---
PT RESTING IN BED WITH EYES CLOSED, BUT IS EASILY AROUSABLE. BREATHING IS EVEN AND UNLABORED, NO RESP DISTRESS NOTED. PT DENIES HAVING ANY PAIN AT THIS TIME. NO ACUTE DISTRESS NOTED. CALL LIGHT WITHIN REACH. BED ALARM ON. WILL CONT TO MONITOR.
[2019-05-31 05:50] VITALS: BP 176/62
[2019-05-31 06:58] LABS: BASOPHIL % 0.3 % (0-2); PLATELET COUNT 206 x10^3mcL (130-400)
[2019-05-31 07:06] LABS: CALCIUM 8.2 mg/dL (8.5-10.1); CHLORIDE SERUM 103 mmol/L (98-107); CREATININE SERUM 2.8 mg/dL (0.6-1.0); GLUCOSE SERUM 88 mg/dL (74-106); MAGNESIUM 1.8 mg/dL (1.8-2.4); POTASSIUM SERUM 3.8 mmol/L (3.5-5.1); SODIUM SERUM 142 mmol/L (136-145)
[2019-05-31 07:17] LABS: RED CELL DISTRIBUTION WIDTH 15.2 % (11.5-14.5)
--- NOTE | 2019-05-31 08:00 | NUR ---
PATIENT RECEIVED ALERT AND ORIENTED TIMES FOUR. 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 PATIENT HAS BEEN OOB AND WITH ASSIST AND TOLERATED WELL. HAD A SMALL STOOL OR SHE PUT IT ROCKS. GAVE HER COLACE ORDERED AND WILL ADVISE THE RESIDENT THAT SHE NEEDS SOMETHING ELSE FOR STOOL. PATIENT IS STILL URINATING AND THE TUNNEL CATH INTACT TO THE FIRHT UPPER CHEST WALL. PATIENT HAS HISTORY OF COLON CANCER AND HAS A LARGE SCAR TO THE ABDOMEN. SHE HAS PAIN ON AND OFF TO THE LOWER BACK AND LIDOCAINE PATCH APPLIED. VITALS AT THIS TIME AT 97.9, 75, 18, 176/62, 97%, SOME DIMINISHED BREATH SOUNDS AND DENIES ANY COUGH AT THIS TIME. SHE AND NOTED LABS OF THE H AND H OF 7.6/23, AND BUN AT 38.0, AND THE CREATININE AT 2.8. PATIENT HAS POTASSIUM NOW QAT 3.8 AND SHE RECEIVED THE POTASSIUM ORDERED THIS AM. SHE HAS NO REQUEST FOR PAIN MEDICATION AND IS HOPING FOR DISCHARGE HOME TODAY. K AND HAS
[2019-05-31 09:18] VITALS: BP 125/65
[2019-05-31] MEDS ORDERED: COR6 PO (10:51)
[2019-05-31] MEDS ORDERED: PRO4I SC (10:51)
[2019-05-31] MEDS ORDERED: ZES20 PO (10:52)
[2019-05-31] MEDS ORDERED: NOVAPLUS LIDOCAINE5% TOP (10:53)
--- NOTE | 2019-05-31 12:24 | NUR ---
DR BOLIVAR CAME IN AND WANTS TO GIVE THE PATIENT DIALYSIS TODAY IWTH A BLOOD TRANSFUSION PRIOR TO ANY DISCHARGE. PATIENT IS AGREEABLE AND SPOKE WITH SOCIAL SERVICE/ DICHARGE TRAVEL OCCUPATIONAL THERAPIST AND THEY ARE AWARE.
[2019-05-31 12:58] VITALS: BP 185/70
[2019-05-31 13:44] VITALS: BP 185/70
--- NOTE | 2019-05-31 14:17 | NUR ---
NURSE MAYNOR AWARE OF ORDERS FOR DIALYSIS TODAY. PATIENT IS AWAITING THE READINESS OF THE BLOOD ORDERED. PATIENT HAD TYPE AND SCREEN DONE ORDERED.
--- NOTE | 2019-05-31 16:11 | NUR ---
BLOOD IS READY AND CHARGE PAGED NURSE VICTORIANO TO LET HER KNOW TO COME FOR DIALYSIS. PATIENT IS AWARE OF THE INFUSION INDICATED. SHE WILL PROBALLY STAY TILL TOMORROW THE BLOOD AND DIALYSIS WILL BE LATEER.
[2019-05-31 17:45] VITALS: BP 140/59
--- NOTE | 2019-05-31 18:11 | NUR ---
SPOKE WITH MS MCGUIRE AND SHE WILL BE IN LATER TO DO THE DIALYSIS INDICATED. WILL RETREAVE THE BLOOD AT THAT TIME. CONSENT OBTAINED FOR BLOOD INDIATED.
--- NOTE | 2019-05-31 19:09 | NUR ---
PATIENT RESTING QUIETLY AT THIS TIME. NO INDICATION OF DISTRESS. MS MCGUIRE TO DIALYSIS TONIGHT.
--- NOTE | 2019-05-31 19:35 | NUR ---
RECEIVED PT IN BED AWAKE, ALERT,ORIENTED X4. LUNGS CTA. NO SOB ON ROOM AIR. BOWEL SOUNDS ACTIVE. PT HAS NO C/O PAIN AT THIS TIME. IV SITE TO RT WRIST W/ MILD REDNESS AND SWELLING. IV REMOVED. CALL LIGHT W/IN REACH.
--- NOTE | 2019-05-31 19:45 | NUR ---
STARTED NEW IV ON THE RT HAND. PT TOLERATED PROCEDURE WELL.
--- NOTE | 2019-05-31 21:00 | NUR ---
HEMODIALYSIS STARTED AT THIS TIME.
[2019-05-31 21:17] VITALS: BP 176/63
--- NOTE | 2019-05-31 21:35 | NUR ---
2 UNITS PRBC GIVEN BY DIALYSIS NURSE DURING HEMODIALYSIS.
--- NOTE | 2019-06-01 03:16 | NUR ---
PT APPEARS TO BE SLEEPING COMFORTABLY.
[2019-06-01 05:29] VITALS: BP 127/70
--- NOTE | 2019-06-01 06:47 | NUR ---
PT SLEPT AT LONG INTERVALS. SHE REMAINS ALERT AND ORIENTED X4. SHE HAD NO EPISODE OF SOB AND PT ON ROOM AIR ALL THE TIME. PT HAD HEMODIALYSIS W/ 1400 ML OUT. NO BM NOTED. HL TO RT HAND INTACT AND PATENT. ALL NEEDS ATTENDED TO.
--- NOTE | 2019-06-01 08:00 | NUR ---
SHIFT ASSESSMENT DONE. PATIENT A/A/OX4; CLEAER SPEECH. ABLE TO MADE NEEDS KNOWN. NO TELE MONITOR. NO RESP DISTRESS ON RA. O2 SAT 95%. TOLERATED RENAL DIET BREAKFAST. NO N/V. TUNNEL CATH TO RT UPPER CHEST WALL WITH DRSG INTACT. LAST H/D YESTERDAY W/ 2 UNITS PRBC TRANSFUSION. PATIENT STILL VOID VIA BRP. NEED ASSIST FOR BRP. IVHL'D TO RT HAND. DENIED PAIN NOW. CALL LIGHT IN REACH.
[2019-06-01 09:07] LABS: BASOPHIL % 0.4 % (0-2); PLATELET COUNT 211 x10^3mcL (130-400)
[2019-06-01 09:16] VITALS: BP 174/61
[2019-06-01 13:21] VITALS: BP 109/64
[2019-06-01 14:42] VITALS: BP 179/75
[2019-06-01 15:59] VITALS: BP 157/67; BP 179/75
[2019-06-01 17:32] VITALS: BP 157/67
--- NOTE | 2019-06-01 18:46 | NUR ---
CONDITION STABLE. PATIENT HAD VOIDING X2, 400CC AND BM X1 THIS SHIFT. ORDER OF DISCHARGE TO HOME WITH HOME HEALTH CARE ARRANGED BY CHILD CARE COOK. WAITING FOR FAMILY MEMBERS COME TO MANAGER EMERGENCY DEPARTMENT. ENDORSED CARE TO [facility] NURSE.
--- NOTE | 2019-06-01 19:17 | NUR ---
D/C TO HOME PER ORDER. INSTRUCTION GIVEN TO PATIENT'S GRANDSON -NAYANA. IV D/C'D. OVER NEEDLE CATHETER INTACT. CONDITION STABLE.
== END 2019-06-01 19:17 | disposition home health service (06) | DRG 280 ==
LOC: ED 20:25 → DU 23:12 → IC 23:12 → DU 05-25 17:00 → MU 05-28 10:26
PROVIDERS: Anesthesiology; Emergency Medicine; Family Medicine; Surgery; ADMIT Internal Medicine
PROC: B543ZZA Ultrasonography of Right Jugular Veins, Guidance (ICD-10-PCS; 2019-05-26)
PROC: 05HM33Z Insertion of Infusion Device into Right Internal Jugular Vein, Percutaneous Approach (ICD-10-PCS; principal; 2019-05-26 11:00)
DX: I13.0 Hypertensive heart and chronic kidney disease with heart failure and stage 1 through stage 4 chronic kidney disease, or unspecified chronic kidney disease (principal); N17.0 Acute kidney failure with tubular necrosis; I21.A1 Myocardial infarction type 2; E43 Unspecified severe protein-calorie malnutrition; N18.4 Chronic kidney disease, stage 4 (severe); I16.0 Hypertensive urgency; E87.6 Hypokalemia; I50.9 Heart failure, unspecified; D53.9 Nutritional anemia, unspecified; Z68.20 Body mass index [BMI] 20.0-20.9, adult; Z85.038 Personal history of other malignant neoplasm of large intestine
CPT/HCPCS: 83880; 84439; 87046; 87046-59; 97110-GP; 97112-GP; 97116-GP; 97530-GP; A4301; A4628; G0378; J0360; J0690; J0885-EC; J1644; J1940; J2001; J2250; J2405; J3010; J3480; J3490; J7030; J7120; J7620; P9016; Q0092

== ENCOUNTER 2019-06-15 18:05 | Inpatient (IN) | payer OTHER ==
[~2019-06-15] VITALS: Ht 157.5 cm; Wt 56.4 kg
[~2019-06-15 18:05] MED LIST changes: +COR6 PO; +LIPI10 PO; +NOVAPLUS LIDOCAINE5% TOP; +PRO4I SC; +PROCARDIA XL90 MG PO; +ZES20 PO
[2019-06-15 19:12] LABS: BASOPHIL % 0.1 % (0-2); PLATELET COUNT 193 x10^3mcL (130-400)
[2019-06-15 19:24] LABS: RED CELL DISTRIBUTION WIDTH 14.9 % (11.5-14.5)
[2019-06-15 19:40] LABS: CALCIUM 8.8 mg/dL (8.5-10.1); CARBON DIOXIDE 26.8 mmol/L (21-32); CHLORIDE SERUM 104 mmol/L (98-107); CREATININE SERUM 2.4 mg/dL (0.6-1.0); GLUCOSE SERUM 129 mg/dL (74-106); POTASSIUM SERUM 3.5 mmol/L (3.5-5.1); SODIUM SERUM 141 mmol/L (136-145)
[2019-06-15 19:45] LABS: ALKALINE PHOSPHATASE 57 U/L (46-116); ALT/SGPT 20 U/L (14-59); AST/SGOT 16 U/L (15-37); BILIRUBIN TOTAL 0.3 mg/dL (0.20-1.00); TOTAL PROTEIN, SERUM 6.2 g/dL (6.4-8.2)
[2019-06-15 19:47] LABS: ALBUMIN 2.5 g/dL (3.4-5.0)
[2019-06-15] MEDS ORDERED: BRIMONIDINE TART5 M1 OP (21:21)
[2019-06-15 21:37] LABS: CHOLESTEROL/HDL RATIO 4.4
[2019-06-15 21:42] LABS: T3 TOTAL 0.81 ng/mL
[2019-06-15 21:45] LABS: microscopic required? YES; urine erythrocyte NEGATIVE (NEGATIVE)
[2019-06-15 21:49] LABS: FREE T4 0.99 ng/dL (0.76-1.46); FREE THYROXINE INDEX 2.2 ug/dL (1.4-4.5); T4(THYROXINE) 6.2 ug/dL (4.7-13.3)
[2019-06-15 22:14] VITALS: BP 188/76
[2019-06-15 23:08] VITALS: BP 188/76
[2019-06-16 05:51] VITALS: BP 100/55
[2019-06-16 06:49] LABS: BASOPHIL % 0.3 % (0-2); PLATELET COUNT 162 x10^3mcL (130-400)
[2019-06-16 07:25] LABS: CALCIUM 8.3 mg/dL (8.5-10.1); CARBON DIOXIDE 25.1 mmol/L (21-32); CHLORIDE SERUM 103 mmol/L (98-107); CREATININE SERUM 2.5 mg/dL (0.6-1.0); GLUCOSE SERUM 77 mg/dL (74-106); MAGNESIUM 1.6 mg/dL (1.8-2.4); PHOSPHOROUS 4.3 mg/dL (2.5-4.9); SODIUM SERUM 139 mmol/L (136-145)
[2019-06-16 07:33] LABS: POTASSIUM SERUM 2.8 mmol/L (3.5-5.1)
[2019-06-16 09:39] VITALS: BP 176/71
[2019-06-16 13:44] VITALS: BP 160/61
[2019-06-16 16:17] VITALS: BP 165/65
[2019-06-16 20:25] VITALS: BP 145/56
[2019-06-17 06:27] LABS: BASOPHIL % 0.3 % (0-2); PLATELET COUNT 174 x10^3mcL (130-400)
[2019-06-17 06:41] LABS: RED CELL DISTRIBUTION WIDTH 15.1 % (11.5-14.5)
[2019-06-17 06:55] LABS: CALCIUM 8.7 mg/dL (8.5-10.1); CARBON DIOXIDE 25.2 mmol/L (21-32); CHLORIDE SERUM 102 mmol/L (98-107); CREATININE SERUM 1.9 mg/dL (0.6-1.0); GLUCOSE SERUM 75 mg/dL (74-106); MAGNESIUM 1.7 mg/dL (1.8-2.4); PHOSPHOROUS 3.2 mg/dL (2.5-4.9); POTASSIUM SERUM 3.4 mmol/L (3.5-5.1); SODIUM SERUM 137 mmol/L (136-145)
[2019-06-17 07:20] VITALS: BP 188/75
[2019-06-17 08:27] VITALS: BP 155/65
[2019-06-17 11:44] VITALS: BP 165/71
[2019-06-17 16:31] VITALS: BP 188/75
[2019-06-17 18:33] VITALS: BP 150/65
[2019-06-17 20:35] VITALS: BP 170/66
[2019-06-18] VITALS (7 sets, daily range): BP systolic 135–202; BP diastolic 60–86; Ht 157.5 cm; Wt 56.4 kg
[2019-06-18 06:22] LABS: BASOPHIL % 0.2 % (0-2); PLATELET COUNT 201 x10^3mcL (130-400)
[2019-06-18 06:25] LABS: RED CELL DISTRIBUTION WIDTH 15.1 % (11.5-14.5)
[2019-06-18 06:39] LABS: CALCIUM 8.6 mg/dL (8.5-10.1); CARBON DIOXIDE 23.8 mmol/L (21-32); CHLORIDE SERUM 98 mmol/L (98-107); CREATININE SERUM 2.4 mg/dL (0.6-1.0); GLUCOSE SERUM 121 mg/dL (74-106); POTASSIUM SERUM 3.6 mmol/L (3.5-5.1); SODIUM SERUM 132 mmol/L (136-145)
[2019-06-19] VITALS (7 sets, daily range): BP systolic 131–193; BP diastolic 61–78
[2019-06-20 05:59] VITALS: BP 169/67
[2019-06-20 08:56] VITALS: BP 175/74
[2019-06-20 12:43] VITALS: BP 178/86
[2019-06-20 17:40] VITALS: BP 128/55
[2019-06-20 21:09] VITALS: BP 143/66
[2019-06-21 06:15] VITALS: BP 180/82
[2019-06-21 09:11] VITALS: BP 188/80
[2019-06-21] MEDS ORDERED: TAMIFLU30 MG PO (10:15)
[2019-06-21] MEDS ORDERED: MUCINEX600 MG PO (10:16)
[2019-06-21] MEDS ORDERED: CIPRO500 MG PO (10:24)
[2019-06-21 10:31] VITALS: BP 149/76
[2019-06-21 13:45] VITALS: BP 169/71
[2019-06-21 17:04] VITALS: BP 147/68
== END 2019-06-21 19:50 | disposition home health service (06) | DRG 193 ==
LOC: ED 18:05 → DU 21:08 → MU 06-16 14:01
PROVIDERS: Emergency Medicine; ADMIT Family Medicine
PROC: 5A1D70Z Performance of Urinary Filtration, Intermittent, Less than 6 Hours Per Day (ICD-10-PCS; principal; 2019-06-21)
DX: J09.X2 Influenza due to identified novel influenza A virus with other respiratory manifestations (principal); N18.6 End stage renal disease; N39.0 Urinary tract infection, site not specified; E44.0 Moderate protein-calorie malnutrition; I12.0 Hypertensive chronic kidney disease with stage 5 chronic kidney disease or end stage renal disease; B96.4 Proteus (mirabilis) (morganii) as the cause of diseases classified elsewhere; E11.65 Type 2 diabetes mellitus with hyperglycemia; E11.22 Type 2 diabetes mellitus with diabetic chronic kidney disease; H40.9 Unspecified glaucoma; E78.5 Hyperlipidemia, unspecified; Z99.2 Dependence on renal dialysis; Z79.84 Long term (current) use of oral hypoglycemic drugs; Z68.22 Body mass index [BMI] 22.0-22.9, adult; Z85.068 Personal history of other malignant neoplasm of small intestine
CPT/HCPCS: 84439; 87804; 97110-GP; 97530-GP; G0378; J0696; J2060; J2405; J3475; J7030; J7050; J7620; J7626; Q0092

== ENCOUNTER 2020-03-16 11:39 | Emergency (ER) | payer OTHER ==
[~2020-03-16] VITALS: Ht 157.5 cm; Wt 58.5 kg
[~2020-03-16 11:39] MED LIST changes: +BRIMONIDINE TART5 M1 OP; +CIPRO500 MG PO; +MUCINEX600 MG PO; +TAMIFLU30 MG PO
[2020-03-16 11:47] VITALS: Ht 157.5 cm; Wt 58.5 kg
[2020-03-16 14:36] VITALS: BP 175/62
== END 2020-03-16 14:36 | disposition home or self-care (01) ==
LOC: ED 11:39
DX: S46.912A Strain of unspecified muscle, fascia and tendon at shoulder and upper arm level, left arm, initial encounter (principal); S80.02XA Contusion of left knee, initial encounter; S00.83XA Contusion of other part of head, initial encounter; J90 Pleural effusion, not elsewhere classified; I10 Essential (primary) hypertension; E11.9 Type 2 diabetes mellitus without complications; Z88.5 Allergy status to narcotic agent; Z90.711 Acquired absence of uterus with remaining cervical stump; W18.30XA Fall on same level, unspecified, initial encounter; Y93.89 Activity, other specified; Y92.89 Other specified places as the place of occurrence of the external cause; Y99.8 Other external cause status
CPT/HCPCS: Q0092